=== PATIENT | female | born 1930 | race Caucasian/White ===

== ENCOUNTER 2016-08-14 21:01 | Observation (INO) | payer MEDICARE, OTHER ==
[~2016-08-14] VITALS: Ht 157.5 cm; Wt 55.0 kg
[2016-08-14 22:27] VITALS: BP 172/79; PULSE 65; RESP 20; TEMP 97.8; O2SAT 100
--- NOTE | 2016-08-14 22:27 | PD ---
HPI Chief Complaint: Psychiatric Symptoms Time Seen by Provider: 22:21 Travel History International Travel<30 days: No Contact w/Intl Traveler<30days: No History of Present Illness HPI Patient comes in under a [place] act by police after being found walking in traffic after walking away from her house. Per [place] act patient has a history of dementia. Patient states she had an argument with her sister and was just trying to get away. Patient's only concern she states she is supposed to go see her doctor tomorrow have blanche removed. Patient is uncertain as to why she blanche in her left hip. Patient denies any pain anywhere, fevers, shortness of breath, headache, chest pain, cough, or abdominal pain. PFSH Past Medical History Medical History: Unable to Obtain (poor historian) Social History Alcohol Use: No Tobacco Use: No Substance Use: No Allergies-Medications (Allergen,Severity, Reaction): Coded Allergies: No Known Allergies (Unverified , 08/15/16) Reported Meds & Prescriptions Reported Meds & Active Scripts Active Keflex (Cephalexin) 500 Mg Cap 500 Mg PO Q12H 7 Days Review of Systems ROS Limitations: Poor Historian Except as stated in HPI: all other systems reviewed are Neg Physical Exam Exam Limitations: Poor Historian Narrative GENERAL: Well-developed, well nourished, in no acute distress, and non-ill appearing. SKIN: Warm and dry. [place] noted left hip they are dry clean intact without signs of infection or drainage. HEAD: Atraumatic. Normocephalic. EYES: Pupils equal and round. EOMI. No scleral icterus. No injection or drainage. ENT: No nasal bleeding or discharge. Mucous membranes pink and moist. NECK: Trachea midline. Supple. No nuclear rigidity. CARDIOVASCULAR: Regular rate and rhythm. Grade 1/6 murmur appreciated. RESPIRATORY: No accessory muscle use. No respiratory distress. Clear to auscultation. Breath sounds equal bilaterally. MUSCULOSKELETAL: No obvious deformities. No clubbing. No cyanosis. No edema. Full range of motion. NEUROLOGICAL: Awake and alert. No obvious cranial nerve deficits. Motor grossly within normal limits. Normal speech. PSYCHIATRIC: Appropriate mood and affect; insight and judgment normal. Data Data Last Documented VS Vital Signs Date Time Temp Pulse Resp B/P Pulse Ox O2 Delivery O2 Flow Rate FiO2 08/14/16 22:27 97.8 65 20 172/79 100 Orders Complete Blood Count With Diff (08/14/16 22:14) Comprehensive Metabolic Panel (08/14/16 22:14) Urinalysis - C+S If Indicated (08/14/16 22:14) Psych Screen (08/14/16 22:14) Drug Screen, Random Urine (08/14/16 22:14) Alcohol (Ethanol) (08/14/16 22:14) Salicylates (Aspirin) (08/14/16 22:14) Tylenol (Acetaminophen) (08/14/16 22:14) Urine Culture (08/14/16 22:45) Iv Access Insert/Monitor (08/15/16 00:30) Sodium Chlorid 0.9% 500 Ml Inj (Ns 500 M (08/15/16 00:30) Ceftriaxone Inj (Rocephin Inj) (08/15/16 00:30) Labs Laboratory Tests Test 08/14/16 08/14/16 22:45 22:54 Urine Color YELLOW Urine Turbidity CLEAR Urine pH 6.0 Urine Specific [place] 1.007 Urine Protein NEG mg/dL Urine Glucose (UA) TRACE mg/dL Urine Ketones NEG mg/dL Urine Occult Blood NEG Urine Nitrite NEG Urine Bilirubin NEG Urine Urobilinogen LESS THAN 2.0 MG/DL Urine Leukocyte Esterase LARGE Urine RBC 7 /hpf Urine WBC 17 /hpf Urine Squamous Epithelial 3 /hpf Cells Urine Renal Epithelial Cells 5 /hpf Urine Bacteria RARE /hpf Urine Hyaline Casts 1 /lpf Urine Mucus FEW /lpf Microscopic Urinalysis Comment CULTURE INDICATED Urine Opiates Screen NEG Urine Barbiturates Screen NEG Urine Amphetamines Screen NEG Urine Benzodiazepines Screen NEG Urine Cocaine Screen NEG Urine Cannabinoids Screen NEG White Blood Count 10.4 TH/MM3 Red Blood Count 3.45 MIL/MM3 Hemoglobin 10.0 GM/DL Hematocrit 29.4 % Mean Corpuscular Volume 85.0 FL Mean Corpuscular Hemoglobin 28.9 PG Mean Corpuscular Hemoglobin 33.9 % Concent Red Cell Distribution Width 15.3 % Platelet Count 326 TH/MM3 Mean Platelet Volume 9.1 FL Neutrophils (%) (Auto) 82.9 % Lymphocytes (%) (Auto) 8.9 % Monocytes (%) (Auto) 6.9 % Eosinophils (%) (Auto) 1.0 % Basophils (%) (Auto) 0.3 % Neutrophils # (Auto) 8.6 TH/MM3 Lymphocytes # (Auto) 0.9 TH/MM3 Monocytes # (Auto) 0.7 TH/MM3 Eosinophils # (Auto) 0.1 TH/MM3 Basophils # (Auto) 0.0 TH/MM3 CBC Comment DIFF FINAL Differential Comment Salicylates Level LESS THAN 1.7 MG/DL Sodium Level 131 MEQ/L Potassium Level 4.1 MEQ/L Chloride Level 95 MEQ/L Carbon Dioxide Level 27.3 MEQ/L Anion Gap 9 MEQ/L Blood Urea Nitrogen 20 MG/DL Creatinine 1.57 MG/DL Estimat Glomerular Filtration 31 ML/MIN Rate Random Glucose 100 MG/DL Calcium Level 8.8 MG/DL Total Bilirubin 0.5 MG/DL Aspartate Amino Transf 28 U/L (AST/SGOT) Alanine Aminotransferase 24 U/L (ALT/SGPT) Alkaline Phosphatase 79 U/L Total Protein 6.6 GM/DL Albumin 3.3 GM/DL Acetaminophen Level LESS THAN 2.0 MCG/ML Ethyl Alcohol Level LESS THAN 3 MG/DL MDM Medical Decision Making Medical Screen Exam Complete: Yes Emergency Medical Condition: Yes Differential Diagnosis Homicidal, suicidal, electrolyte abnormality, UTI, dementia, other Narrative Course Patient was seen and examined. Labs were obtained and reviewed. Patient was given 500 cc normal saline for her hyponatremia and a dose of Rocephin for her UTI. Prescription for Keflex was written. Discussed patient with Dr. Sandhu, who is in agreement with plan of care. Patient medically cleared for further treatment and evaluation by psych. Final disposition per psych. Diagnosis Primary Impression: UTI (urinary tract infection) Qualified Code: N39.0 - Urinary tract infection without hematuria, site unspecified Additional Impression: Hyponatremia Patient Instructions: General Instructions, Hyponatremia (ED), Urinary Tract Infection in Women (ED) Additional Instructions: Follow-up with your primary care physician in 5-7 days for reevaluation of your urinary tract infection. Take all medication as prescribed. Return to the emergency department if symptoms get worse. Med/Other Pt SpecificInfo: Prescription(s) given Scripts Cephalexin (Keflex)500 Mg [id number] Mg PO Q12H 7 Days Ref 0 Prov:Cinthya Vaca MD 08/15/16 Condition: Stable Sumanth Friend Aug 14, 2016 22:27 Sumanth Friend Aug 14, 2016 22:27
[2016-08-14 23:15] LABS: AUTOMATED NEUTROPHIL # 8.6 TH/MM3 (1.8-7.7); BASOPHIL % 0.3 % (0.0-2.0); EOSINOPHIL # 0.1 TH/MM3 (0-0.4); HEMATOCRIT 29.4 % (35.0-46.0); HEMO FLAGS DIFF FINAL; LYMPH % 8.9 % (9.0-44.0); LYMPHOCYTE # 0.9 TH/MM3 (1.0-4.8); MEAN CORPUSCULAR HEMOGLOBIN 28.9 PG (27.0-34.0); MEAN CORPUSCULAR HGB CONC 33.9 % (32.0-36.0); MONO % 6.9 % (0.0-8.0); NEUT % 82.9 % (16.0-70.0); PLATELET COUNT 326 TH/MM3 (150-450); RED BLOOD COUNT 3.45 MIL/MM3 (4.00-5.30); RED CELL DISTRIBUTION WIDTH 15.3 % (11.6-17.2); WHITE BLOOD COUNT 10.4 TH/MM3 (4.0-11.0)
[2016-08-14 23:24] LABS: AMPHETAMINE, URINE NEG (NEG); BARBITURATES, URINE NEG (NEG); COCAINE, URINE NEG (NEG)
[2016-08-14 23:31] LABS: BACTERIA, URINE RARE /hpf; BLOOD, URINE NEG (NEG); COMMENT (UR) CULTURE INDICATED; CULTURE IF INDICATED CULTURE INDICATED; GLUCOSE,URINE TRACE mg/dL (NEG); HYALINE CAST, URINE 1 /lpf (RARE); KETONE, URINE NEG (NEG); MUCUS URINE FEW /lpf (OCC); NITRITE,URINE NEG (NEG); RENAL EPITHELIAL CELLS 5 /hpf; SQUAMOUS EPITHELIAL CELL URINE 3 /hpf (0-5); URINE COLOR YELLOW (YELLW/STRAW)
[2016-08-14 23:43] LABS: ACETAMINOPHEN LESS THAN 2.0 MCG/ML (10.0-30.0); ALKALINE PHOSPHATASE 79 U/L (45-117); ALT (GPT) 24 U/L (10-53); ANION GAP 9 MEQ/L (5-15); AST (GOT) 28 U/L (15-37); BICARBONATE 27.3 MEQ/L (21.0-32.0); BLOOD UREA NITROGEN 20 MG/DL (7-18); CHLORIDE 95 MEQ/L (98-107); GLOMERULAR FILTRATION RATE 31 ML/MIN (>89); POTASSIUM 4.1 MEQ/L (3.5-5.1); SODIUM (NA) 131 MEQ/L (136-145); TOTAL BILIRUBIN ADULT 0.5 MG/DL (0.2-1.0)
[2016-08-15] MEDS ORDERED: cefTRIAXone INJ 1,000 MG in SODIUM CHLORIDE 0.9% INJ 100 ML IV ONE (00:30)
[2016-08-15] MEDS ORDERED: SODIUM CHLORID 0.9% 500 ML INJ 500 ML IV ONE (00:30)
[2016-08-15] MEDS ORDERED: CEPH-460 PO (00:32)
[2016-08-15 05:00] VITALS: BP 154/71; PULSE 68; RESP 16; O2SAT 99
[2016-08-15 06:25] VITALS: BP 140/64; PULSE 49; RESP 18; TEMP 98.5; O2SAT 98
[2016-08-15 07:20] VITALS: BP 136/63; PULSE 59; RESP 16; O2SAT 98
--- NOTE | 2016-08-15 11:41 | PD.CONS ---
Provisional Diagnosis Admission Date [place]. Dementia with behavioral disturbances [place] II. Deferred [place] III. UTI, recent hip fracture [place] IV. Patient lives alone [place] V. 50 History of Present Illness Service Psychiatry Consult Requested By Primary Care Physician Unknown HPI The patient is a 86-year-old woman, domiciled alone in [place], , with psychiatric history of dementia, no previous psychiatric hospitalizations, who comes in under a [place] act by police after being found walking in traffic after walking away from her house. Per Montero act patient has a history of dementia. Patient states she had an argument with her sister and was just trying to get away from her when she was Montero acted. On the ER routine labs were done, patient was found to have a UTI, she was given 1 gram of ceftriaxone. On psychiatric evaluation patient is calm, cooperative, pleasant but confused and disoriented. Patient says that she lives with her , that she doesn't know what is she doing the hospital, she things that we are in 2015, she reports happy mood, denies depressive symptoms, denies anxiety, denies perceptual disturbances, she denies suicidal or homicidal ideation, she denies visual and auditory hallucinations. As per nurse patient has been calm, very easy to deal with, no agitation, no aggressive behavior observed at the moment. Collateral information from briseida Lopez, brother-in- law, , he informs that the patient had a hip surgery a couple weeks ago and since then her mentation has been progressively deteriorating. Patient has history of dementia, she functions at a very low level, she lives alone but she receives permanent help of her sisters. He says that today that we will be working very hard and finding placement for the patient. They understand that the patient cannot live alone and need professional help. He does not think that the patient needs psychiatric admission. As per [id number] the patient doesn't use alcohol or illicit drugs. Review of Systems Constitutional: DENIES: Diaphoretic episodes, Fatigue, Fever, Weight gain, Weight loss, Chills, Dizziness, Change in appetite, Night Sweats Endocrine: DENIES: Abnorml menstrual pattern, Heat/cold intolerance, Polydipsia , Polyuria, Polyphagia Eyes: DENIES: Blurred vision, Diplopia, Eye inflammation, Eye pain, Vision loss , Photosensitivity, Double Vision Ears, nose, mouth, throat: DENIES: Tinnitus, Hearing loss, Vertigo, Nasal discharge, Oral lesions, Throat pain, Hoarseness, Ear Pain, Running Nose, Epistaxis, Sinus Pain, Toothache, Odynophagia Respiratory: DENIES: Apneas, Cough, Snoring, Wheezing, Hemoptysis, Sputum production, Shortness of breath Cardiovascular: DENIES: Chest pain, Palpitations, Syncope, Dyspnea on Exertion , PND, Lower Extremity Edema, Orthopnea, Claudication Gastrointestinal: DENIES: Abdominal pain, Black stools, Bloody stools, Constipation, Diarrhea, Nausea, Vomiting, Difficulty Swallowing, Anorexia Musculoskeletal: COMPLAINS OF: Joint pain (patient reports hip pain) Integumentary: DENIES: Abnormal pigmentation, Pruritus, Rash, Nail changes, Breast masses, Breast skin changes, Nipple discharge Immunologic/allergic: DENIES: Eczema, Urticaria Neurologic: DENIES: Abnormal gait, Headache, Localized weakness, Paresthesias, Seizures, Speech Problems, Tremor, Poor Balance Past Family Social History Coded Allergies: No Known Allergies (Unverified , 08/15/16) Active Scripts Cephalexin (Keflex)500 Mg [id number] Mg PO Q12H 7 Days Ref 0 Prov:Cinthya Vaca MD 08/15/16 Family History Denies Social History Patient was born and raised in [place], she lives alone in [place], her sister help her in daily activities, she is , Patient's Strengths (min. 2) Family support Physical Exam On physical exam no agitation, no aggressive behavior, no EPS, no stiffness, no tremors observed Vital Signs Vital Signs Date Time Temp Pulse Resp B/P Pulse Ox O2 Delivery O2 Flow Rate FiO2 08/15/16 07:20 59 16 136/63 98 Room Air 08/15/16 06:25 98.5 Lab Results WBCs 10.4, RBCs 3.4, HCT 39.4, UTI positive, NA 134, K4.1, AST 28, AST 29, creatinine 1.7, BUN 20, toxicology is negative, blood alcohol level is less than 3. Mental Status Examination Appearance Elderly lady, age appearing, good hygiene, [facility], calm, superficially cooperative, pleasant Speech: Hesitant, Slow Orientation: Person Memory: Impaired (describe) Thought Process: Loose Association Thought Content: Bizarre thinking Hallucination Type: None Attention and Concentration: Abnormal Suicidal Ideation: No Previous Suicide Attempts: No Homicidal Ideation: No Previous Homicide Attempts: No Insight: Poor Judgement: WNL Affect: Good Affect if Inappropriate: Blunt Mood: Appropriate Motor Activity: Normal gait Assessment & Plan Problem List: (1) Dementia with behavioral disturbance Assessment & Plan: On psychiatric evaluation today the patient does not present any evidence of depressive symptoms, anxiety, batsheva or psychosis. The patient denies suicidal or homicidal ideation, she denies visual and auditory hallucinations.. Patient is pleasantly confused, disoriented in time and place, repetitive, illogical incoherent which is consistent with underlying dementia. At this moment the patient does not present any agitation, any aggressive behavior. Most probably recent episode of agitation that led to Montero act was secondary to superimposed delirium secondary to UTI. Patient does not meet criteria for psychiatric admission at this moment. No psychotropics recommended at this time. field crop i farmworker intervention to coordinate with family member a safe discharge planning. ICD Code: F03.91 Assessment & Plan Estimated LOS: Chang Wells MD Aug 15, 2016 11:41
[2016-08-15 15:17] VITALS: BP 141/68; O2SAT 96
[2016-08-15] MEDS ORDERED: BISACODYL 10 MG SUPP PR PRN (16:45)
[2016-08-15] MEDS ORDERED: NALOXONE HCL 0.4 MG/ML AMP IV PRN (16:45)
[2016-08-15] MEDS ORDERED: ONDANSETRON HCL 4 MG/2 ML VIAL IVP PRN (16:45)
[2016-08-15] MEDS ORDERED: METOCLOPRAMIDE HCL 10 MG/2 ML VIAL IV PUSH PRN (16:45)
[2016-08-15] MEDS ORDERED: SODIUM CHLORIDE 0.9% FLUSH 10 ML FLUSH IV FLUSH PRN (16:45)
--- NOTE | 2016-08-15 17:05 | HHI.HP ---
[facility] Unknown Admission Diagnosis dementia, failure to thrive, placement issue Diagnoses: Chief Complaint: Dementia Travel History International Travel<30 Days: No Contact w/Intl Traveler <30 Da: No Traveled to Known Affected Are: No History of Present Illness 86-year-old female with a past medical history of dementia who was initially brought to the ED under [place] act for wandering in traffic. The patient is pleasantly demented and is a poor historian. She does know she is in the hospital, but does not recall her year; she does know that it is Sunday, but does not know the month or year. History is also obtained from EMR and ED communication. The patient states that she lives with her sisters and brother- in-law. Apparently she was recently in a facility, but is now currently residing at home with family. The patient's family is trying to get her into an assisted living facility, hopefully tomorrow. The patient has no acute medical complaints at this time. She denies any dysuria. 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 She is not sure what medication she is on home, but as please take something as needed when her heart is racing. Review of Systems Except as stated in HPI: all other systems reviewed are Neg Past Family Social History Past Medical History Dementia History of palpitations Past Surgical History Patient denies any surgeries, however was apparently at a rehabilitation facility recently after a left hip procedure Reported Medications Patient reports medication and take as needed for her recent Allergies: Coded Allergies: No Known Allergies (Unverified , 08/15/16) Active Ordered Medications Current Medications Medications (Trade) Dose Ordered Sig/Cb Route Start Time Stop Time Status Last Admin (NS 1000 ml Inj) 1,000 ml @ 83 mls/hr Q12H3M IV 08/15/16 16:34 UNV (NS Flush) 2 ml UNSCH PRN IV FLUSH 08/15/16 16:45 UNV (NS Flush) 2 ml BID IV FLUSH 08/15/16 21:00 UNV (Tylenol) 650 mg Q4H PRN PO 08/15/16 16:45 UNV (Zofran Inj) 4 mg Q6H PRN IVP 08/15/16 16:45 UNV (Reglan Inj) 5 mg Q6H PRN IV PUSH 08/15/16 16:45 UNV (Dulcolax Supp) 10 mg DAILY PRN MT 08/15/16 16:45 UNV (Colace) 100 mg Q12H PO 08/15/16 16:45 UNV (Lovenox Inj) 40 mg Q24H SQ 08/15/16 16:45 UNV (Narcan Inj) 0.4 mg UNSCH PRN IV 08/15/16 16:45 UNV Family History Unable to obtain secondary to patient's mental status Social History Reports she lives with her sisters and brother along Denies any alcohol or tobacco use Physical Exam Vital Signs Vital Signs Date Time Temp Pulse Resp B/P Pulse Ox O2 Delivery O2 Flow Rate FiO2 08/15/16 15:17 141/68 96 Room Air 08/15/16 07:20 59 16 136/63 98 Room Air 08/15/16 06:26 18 08/15/16 06:25 98.5 49 18 140/64 98 Room Air 08/15/16 05:00 68 16 154/71 99 Room Air 08/14/16 22:27 97.8 65 20 172/79 100 Physical Exam GENERAL: Well-developed well-nourished. In no acute distress. Oriented to place, soft, and day have a week. Disoriented to birthday, month, year. SKIN: Warm and dry. [place] in place in left hip, clean. HEENT: Normocephalic. Pupils equal and round. Mucous membranes pink and moist. CARDIOVASCULAR: Regular rate and rhythm. No murmur appreciated. RESPIRATORY: No accessory muscle use. Clear to auscultation. Breath sounds equal bilaterally. GASTROINTESTINAL: Abdomen soft, non-tender, nondistended. Bowel sounds x4. MUSCULOSKELETAL: No obvious deformities. No clubbing or cyanosis. No edema. NEUROLOGICAL: Awake and alert. No focal neurological deficits. Moves upper and lower extremities spontaneously. Normal speech. PSYCHIATRIC: Pleasantly confused mood and affect; insight and judgment limited. Laboratory Laboratory Tests Test 08/14/16 08/14/16 22:45 22:54 Urine Color YELLOW Urine Turbidity CLEAR Urine pH 6.0 Urine Specific [place] 1.007 Urine Protein NEG Urine Glucose (UA) TRACE Urine Ketones NEG Urine Occult Blood NEG Urine Nitrite NEG Urine Bilirubin NEG Urine Urobilinogen LESS THAN 2.0 Urine Leukocyte Esterase LARGE Urine RBC 7 Urine WBC 17 Urine Squamous Epithelial 3 Cells Urine Renal Epithelial Cells 5 Urine Bacteria RARE Urine Hyaline Casts 1 Urine Mucus FEW Microscopic Urinalysis Comment CULTURE INDICATED Urine Opiates Screen NEG Urine Barbiturates Screen NEG Urine Amphetamines Screen NEG Urine Benzodiazepines Screen NEG Urine Cocaine Screen NEG Urine Cannabinoids Screen NEG White Blood Count 10.4 Red Blood Count 3.45 Hemoglobin 10.0 Hematocrit 29.4 Mean Corpuscular Volume 85.0 Mean Corpuscular Hemoglobin 28.9 Mean Corpuscular Hemoglobin 33.9 Concent Red Cell Distribution Width 15.3 Platelet Count 326 Mean Platelet Volume 9.1 Neutrophils (%) (Auto) 82.9 Lymphocytes (%) (Auto) 8.9 Monocytes (%) (Auto) 6.9 Eosinophils (%) (Auto) 1.0 Basophils (%) (Auto) 0.3 Neutrophils # (Auto) 8.6 Lymphocytes # (Auto) 0.9 Monocytes # (Auto) 0.7 Eosinophils # (Auto) 0.1 Basophils # (Auto) 0.0 CBC Comment DIFF FINAL Differential Comment Salicylates Level LESS THAN 1.7 Sodium Level 131 Potassium Level 4.1 Chloride Level 95 Carbon Dioxide Level 27.3 Anion Gap 9 Blood Urea Nitrogen 20 Creatinine 1.57 Estimat Glomerular Filtration 31 Rate Random Glucose 100 Calcium Level 8.8 Total Bilirubin 0.5 Aspartate Amino Transf 28 (AST/SGOT) Alanine Aminotransferase 24 (ALT/SGPT) Alkaline Phosphatase 79 Total Protein 6.6 Albumin 3.3 Acetaminophen Level LESS THAN 2.0 Ethyl Alcohol Level LESS THAN 3 Date/Time Procedure Status Source Growth 08/14/16 22:45 Urine Culture - Preliminary Resulted Urine Clean Catch NO GROWTH IN 24 HOURS. Result Diagram: 08/14/16225308/14/162253 Assessment and Plan Assessment and Plan 86-year-old female with a past medical history of dementia who was initially brought to the ED under Montero act for wandering in traffic and admitted pending possible INTERMEDIATE placement Dementia with failure to thrive: Pleasantly confused. Toxicology negative. Continue sitter for now. PT/OT. Case management consulted for discharge disposition. Reconcile and resume home medications. UTI: UA with evidence of UTI. Urine cultures no growth to date. Empiric IV Rocephin pending final urine culture. DEONTE vs CKD: 1.57, and no obvious labs for comparison. Give IVF. Follow -up BMP. Normocytic anemia: Chronic? No previous labs for comparison. Follow-up CBC in the a.m. DVT prophylaxis: Lovenox Discussed Condition With Patient was at her bedside, ED RN, Dr. Guevara, Dr. Blackwell Attending Statement Patient seen in the room in the presence of Nurse and PA agree with management, discussed with charge nurse. Jhoan Orlando Aug 15, 2016 17:05 Marvin Barnett MD Aug 15, 2016 18:17
[2016-08-15] MEDS ORDERED: NAME10TA PO (17:29)
[2016-08-15] MEDS ORDERED: CIPR500T2 PO (17:29)
[2016-08-15] MEDS ORDERED: CITRSOL3 (17:29)
[2016-08-15] MEDS ORDERED: [UNRECOGNIZED DRUG - CODE] PO (17:29)
[2016-08-15] MEDS ORDERED: GLIM1TAB PO (17:29)
[2016-08-15] MEDS ORDERED: ENEMENE5 (17:29)
[2016-08-15] MEDS ORDERED: DULC100C PO (17:29)
[2016-08-15] MEDS ORDERED: HUMU70IN (17:29)
[2016-08-15] MEDS ORDERED: ATEN25TA PO (17:29)
[2016-08-15] MEDS ORDERED: ENOX40IN SQ (17:29)
[2016-08-15] MEDS ORDERED: NAME5TAB2 PO ×2 (17:29)
[2016-08-15] MEDS ORDERED: LISI-515 PO (17:29)
[2016-08-15] MEDS: ENOXAPARIN SODIUM 40 MG/0.4 ML SYRINGE SQ SCH (18:51)
[2016-08-15] MEDS: SODIUM CHLOR 0.9% 1000 ML INJ 1,000 ML IV SCH (18:51)
[2016-08-15 20:31] VITALS: BP_SYST 174; BP_SYST 176; BP_DIAS 68; BP_DIAS 77; PULSE 67; RESP 20; TEMP 98.6; O2SAT 97
[2016-08-15] MEDS: SODIUM CHLORIDE 0.9% FLUSH 10 ML FLUSH IV FLUSH SCH (20:47)
[2016-08-15] MEDS: DOCUSATE SODIUM 100 MG CAP PO SCH (20:48)
[2016-08-16] VITALS (7 sets, daily range): BP systolic 138–187; BP diastolic 64–82; PULSE 60–74; RESP 16–20; TEMP 97.6–98.6; O2SAT 96–99
[2016-08-16] MEDS: cefTRIAXone INJ 1,000 MG in SODIUM CHLORIDE 0.9% INJ 100 ML IV SCH ×2
[2016-08-16] MEDS: SODIUM CHLOR 0.9% 1000 ML INJ 1,000 ML IV SCH ×2 (04:37→16:40)
[2016-08-16] MEDS: SODIUM CHLORIDE 0.9% FLUSH 10 ML FLUSH IV FLUSH SCH ×2 (09:00→20:48)
[2016-08-16] MEDS: DOCUSATE SODIUM 100 MG CAP PO SCH ×2 (09:18→20:47)
--- NOTE | 2016-08-16 11:40 | HHI.PR ---
Subjective Remarks 86-year-old female with a past medical history of dementia who was initially brought to the ED under Montero act for wandering in traffic. The patient is pleasantly demented and is a poor historian. She does know she is in the hospital, but does not recall her year; she does know that it is Sunday, but does not know the month or year. History is also obtained from EMR and ED communication. The patient states that she lives with her sisters and [id number]. Apparently she was recently in a facility, but is now currently residing at home with family. The patient's family is trying to get her into an assisted living facility, hopefully tomorrow. The patient has no acute medical complaints at this time. She denies any dysuria. 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 She is not sure what medication she is on home, but as please take something as needed when her heart is racing. patient stable seen in the room in the presence of sitter and discussed with nurse Miss Michelle arciniega, awaiting for placement no nausea, vomit or diarrhea. Objective Vital Signs Date Time Temp Pulse Resp B/P Pulse Ox O2 Delivery O2 Flow Rate FiO2 08/16/16 07:33 98.1 60 16 187/79 96 08/16/16 03:41 97.6 70 20 97 08/16/16 00:20 97.6 62 20 138/81 99 08/15/16 20:31 98.6 67 20 174/77 97 08/15/16 15:17 141/68 96 Room Air I/O 08/15/16 08/15/16 08/15/16 08/16/16 08/16/16 08/16/16 07:00 15:00 23:00 07:00 15:00 23:00 Intake Total 221 ml 240 ml Output Total 200 ml Balance 221 ml 40 ml Intake Oral 221 ml 240 ml Output Urine Total 200 ml Result Diagram: 08/14/16 22508/14/162253 Imaging No imaging studies Procedures No procedures performed. Other Results Laboratory Tests Test 08/14/16 08/14/16 22:45 22:54 Urine Color YELLOW Urine Turbidity CLEAR Urine pH 6.0 Urine Specific [place] 1.007 Urine Protein NEG mg/dL Urine Glucose (UA) TRACE mg/dL Urine Ketones NEG mg/dL Urine Occult Blood NEG Urine Nitrite NEG Urine Bilirubin NEG Urine Urobilinogen LESS THAN 2.0 MG/DL Urine Leukocyte Esterase LARGE Urine RBC 7 /hpf Urine WBC 17 /hpf Urine Squamous Epithelial 3 /hpf Cells Urine Renal Epithelial Cells 5 /hpf Urine Bacteria RARE /hpf Urine Hyaline Casts 1 /lpf Urine Mucus FEW /lpf Microscopic Urinalysis Comment CULTURE INDICATED Urine Opiates Screen NEG Urine Barbiturates Screen NEG Urine Amphetamines Screen NEG Urine Benzodiazepines Screen NEG Urine Cocaine Screen NEG Urine Cannabinoids Screen NEG White Blood Count 10.4 TH/MM3 Red Blood Count 3.45 MIL/MM3 Hemoglobin 10.0 GM/DL Hematocrit 29.4 % Mean Corpuscular Volume 85.0 FL Mean Corpuscular Hemoglobin 28.9 PG Mean Corpuscular Hemoglobin 33.9 % Concent Red Cell Distribution Width 15.3 % Platelet Count 326 TH/MM3 Mean Platelet Volume 9.1 FL Neutrophils (%) (Auto) 82.9 % Lymphocytes (%) (Auto) 8.9 % Monocytes (%) (Auto) 6.9 % Eosinophils (%) (Auto) 1.0 % Basophils (%) (Auto) 0.3 % Neutrophils # (Auto) 8.6 TH/MM3 Lymphocytes # (Auto) 0.9 TH/MM3 Monocytes # (Auto) 0.7 TH/MM3 Eosinophils # (Auto) 0.1 TH/MM3 Basophils # (Auto) 0.0 TH/MM3 CBC Comment DIFF FINAL Differential Comment Salicylates Level LESS THAN 1.7 MG/DL Sodium Level 131 MEQ/L Potassium Level 4.1 MEQ/L Chloride Level 95 MEQ/L Carbon Dioxide Level 27.3 MEQ/L Anion Gap 9 MEQ/L Blood Urea Nitrogen 20 MG/DL Creatinine 1.57 MG/DL Estimat Glomerular Filtration 31 ML/MIN Rate Random Glucose 100 MG/DL Calcium Level 8.8 MG/DL Total Bilirubin 0.5 MG/DL Aspartate Amino Transf 28 U/L (AST/SGOT) Alanine Aminotransferase 24 U/L (ALT/SGPT) Alkaline Phosphatase 79 U/L Total Protein 6.6 GM/DL Albumin 3.3 GM/DL Acetaminophen Level LESS THAN 2.0 MCG/ML Ethyl Alcohol Level LESS THAN 3 MG/DL Objective Remarks GENERAL: Well-developed well-nourished. In no acute distress. Oriented to place, soft, and day have a week. Disoriented to birthday, month, year. SKIN: Warm and dry. Saline in place in left hip, clean. HEENT: Normocephalic. Pupils equal and round. Mucous membranes pink and moist. CARDIOVASCULAR: Regular rate and rhythm. No murmur appreciated. RESPIRATORY: No accessory muscle use. Clear to auscultation. Breath sounds equal bilaterally. GASTROINTESTINAL: Abdomen soft, non-tender, nondistended. Bowel sounds x4. MUSCULOSKELETAL: No obvious deformities. No clubbing or cyanosis. No edema. NEUROLOGICAL: Awake and alert. No focal neurological deficits. Moves upper and lower extremities spontaneously. Normal speech. PSYCHIATRIC: Pleasantly confused mood and affect; insight and judgment limited. Medications and IVs Current Medications Medications (Trade) Dose Ordered Sig/Cb Route Start Time Stop Time Status Last Admin (NS 1000 ml Inj) 1,000 ml @ 83 mls/hr Q12H3M IV 08/15/16 16:34 08/15/16 18:51 (NS Flush) 2 ml UNSCH PRN IV FLUSH 08/15/16 16:45 (NS Flush) 2 ml BID IV FLUSH 08/15/16 21:00 08/15/16 20:47 (Tylenol) 650 mg Q4H PRN PO 08/15/16 16:45 (Zofran Inj) 4 mg Q6H PRN IVP 08/15/16 16:45 (Reglan Inj) 5 mg Q6H PRN IV PUSH 08/15/16 16:45 (Dulcolax Supp) 10 mg DAILY PRN SC 08/15/16 16:45 (Colace) 100 mg Q12H PO 08/15/16 21:00 08/16/16 09:18 (Lovenox Inj) 40 mg Q24H SQ 08/15/16 18:00 08/15/16 18:51 Naloxone HCl 0.4 mg 0.4 mg UNSCH PRN IV 08/15/16 16:45 (Rocephin Inj/NS Inj) 100 ml @ 200 mls/hr Q24H IV 08/16/16 00:00 A/P Assessment and Plan 86-year-old female with a past medical history of dementia who was initially brought to the ED under Montero act for wandering in traffic and admitted pending possible [facility] placement Dementia with failure to thrive: Pleasantly confused. Toxicology negative. Continue sitter for now. PT/OT. Case management consulted for discharge disposition. Reconcile and resume home medications. status post evaluation by Psychiatry specialist, no present evidence of depressive symptoms, anxiety, batsheva or psychosis, denies suicidal or homicidal ideation, she denies visual and auditory hallucinations. as superimposed delirium secondary to UTI suspected by Psychiatry specialist No psychotropics recommended at this time. hired worker intervention to coordinate with family member a safe discharge planning. UTI: UA with evidence of UTI. Urine cultures no growth to date. Empiric IV Rocephin pending final urine culture. DEONTE vs CKD: 1.57, and no obvious labs for comparison. Give IVF. Follow -up BMP. Normocytic anemia: Chronic? No previous labs for comparison. Follow-up CBC in the a.m. DVT prophylaxis: Lovenox Discussed Condition With Patient seen discussed with her, with nurse Miss Martinez and with sitter. Discharge Planning Awaiting for discharge Planning. Marvin Barnett MD Aug 16, 2016 11:40
[2016-08-16 14:52] LABS: AUTOMATED NEUTROPHIL # 4.7 TH/MM3 (1.8-7.7); BASOPHIL # 0.1 TH/MM3 (0-0.2); EOSINOPHIL % 0.6 % (0.0-4.0); HEMATOCRIT 28.3 % (35.0-46.0); HEMO FLAGS DIFF FINAL; LYMPH % 12.4 % (9.0-44.0); LYMPHOCYTE # 0.8 TH/MM3 (1.0-4.8); MEAN CELL VOLUME 85.6 FL (80.0-100.0); MEAN CORPUSCULAR HEMOGLOBIN 28.2 PG (27.0-34.0); MEAN CORPUSCULAR HGB CONC 32.9 % (32.0-36.0); MONO % 8.4 % (0.0-8.0); NEUT % 77.6 % (16.0-70.0); PLATELET COUNT 282 TH/MM3 (150-450); RED BLOOD COUNT 3.31 MIL/MM3 (4.00-5.30); RED CELL DISTRIBUTION WIDTH 15.4 % (11.6-17.2); WHITE BLOOD COUNT 6.1 TH/MM3 (4.0-11.0)
[2016-08-16 15:16] LABS: BICARBONATE 28.4 MEQ/L (21.0-32.0); POTASSIUM 4.1 MEQ/L (3.5-5.1)
[2016-08-16] MEDS: ENOXAPARIN SODIUM 40 MG/0.4 ML SYRINGE SQ SCH (18:28)
[2016-08-17] MEDS: cefTRIAXone INJ 1,000 MG in SODIUM CHLORIDE 0.9% INJ 100 ML IV SCH ×2
[2016-08-17 04:01] VITALS: BP 160/72; PULSE 85; RESP 20; TEMP 97.6; O2SAT 97
[2016-08-17] MEDS: SODIUM CHLOR 0.9% 1000 ML INJ 1,000 ML IV SCH ×2 (04:43→13:36)
[2016-08-17] MEDS: DOCUSATE SODIUM 100 MG CAP PO SCH ×2 (08:46→21:17)
[2016-08-17] MEDS: SODIUM CHLORIDE 0.9% FLUSH 10 ML FLUSH IV FLUSH SCH ×2 (08:46→21:00)
[2016-08-17] MEDS: ACETAMINOPHEN 325 MG TAB PO PRN (08:47)
--- NOTE | 2016-08-17 10:09 | HHI.PR ---
Subjective Remarks 86-year-old female with a past medical history of dementia who was initially brought to the ED under Montero act for wandering in traffic. The patient is pleasantly demented and is a poor historian. She does know she is in the hospital, but does not recall her year; she does know that it is Sunday, but does not know the month or year. History is also obtained from EMR and ED communication. The patient states that she lives with her sisters and [id number]. Apparently she was recently in a facility, but is now currently residing at home with family. The patient's family is trying to get her into an assisted living facility, hopefully tomorrow. The patient has no acute medical complaints at this time. She denies any dysuria. 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 She is not sure what medication she is on home, but as please take something as needed when her heart is racing. patient stable seen in the room in the presence of sitter and discussed with nurse Miss Michelle arciniega, awaiting for placement no nausea, vomit or diarrhea. 08/17 Stable seen in the room in the presence of sitter and discussed with nurse , non authorized the patient to be without IV line in place due to that the patient is hospitalized and needs a saline lock in place for Code purposes. awaiting for placement Objective Vital Signs Date Time Temp Pulse Resp B/P Pulse Ox O2 Delivery O2 Flow Rate FiO2 08/17/16 09:47 18 08/17/16 04:01 97.6 85 20 160/72 97 08/16/16 23:28 98.6 61 20 149/65 96 08/16/16 19:08 97.6 73 20 146/64 96 08/16/16 15:45 97.8 74 16 177/82 96 08/16/16 11:38 98.3 66 18 179/73 97 I/O 08/16/16 08/16/16 08/16/16 08/17/16 08/17/16 08/17/16 07:00 15:00 23:00 07:00 15:00 23:00 Intake Total 240 ml 240 ml Output Total 200 ml 950 ml Balance 40 ml -710 ml Intake Oral 240 ml 240 ml Output Urine Total 200 ml 950 ml # Voids 1 # Bowel Movements 1 Result Diagram: 08/16/16 1435 08/16/16 1435 Imaging No Imaging studies Procedures No procedures performed. Other Results Laboratory Tests Test 08/14/16 08/14/16 08/16/16 22:45 22:54 14:35 Urine Color YELLOW Urine Turbidity CLEAR Urine pH 6.0 Urine Specific [place] 1.007 Urine Protein NEG mg/dL Urine Glucose (UA) TRACE mg/dL Urine Ketones NEG mg/dL Urine Occult Blood NEG Urine Nitrite NEG Urine Bilirubin NEG Urine Urobilinogen LESS THAN 2.0 MG/DL Urine Leukocyte Esterase LARGE Urine RBC 7 /hpf Urine WBC 17 /hpf Urine Squamous Epithelial 3 /hpf Cells Urine Renal Epithelial Cells 5 /hpf Urine Bacteria RARE /hpf Urine Hyaline Casts 1 /lpf Urine Mucus FEW /lpf Microscopic Urinalysis Comment CULTURE INDICATED Urine Opiates Screen NEG Urine Barbiturates Screen NEG Urine Amphetamines Screen NEG Urine Benzodiazepines Screen NEG Urine Cocaine Screen NEG Urine Cannabinoids Screen NEG Salicylates Level LESS THAN 1.7 MG/DL Total Bilirubin 0.5 MG/DL Aspartate Amino Transf 28 U/L (AST/SGOT) Alanine Aminotransferase 24 U/L (ALT/SGPT) Alkaline Phosphatase 79 U/L Total Protein 6.6 GM/DL Albumin 3.3 GM/DL Acetaminophen Level LESS THAN 2.0 MCG/ML Ethyl Alcohol Level LESS THAN 3 MG/DL White Blood Count 6.1 TH/MM3 Red Blood Count 3.31 MIL/MM3 Hemoglobin 9.3 GM/DL Hematocrit 28.3 % Mean Corpuscular Volume 85.6 FL Mean Corpuscular Hemoglobin 28.2 PG Mean Corpuscular Hemoglobin 32.9 % Concent Red Cell Distribution Width 15.4 % Platelet Count 282 TH/MM3 Mean Platelet Volume 9.2 FL Neutrophils (%) (Auto) 77.6 % Lymphocytes (%) (Auto) 12.4 % Monocytes (%) (Auto) 8.4 % Eosinophils (%) (Auto) 0.6 % Basophils (%) (Auto) 1.0 % Neutrophils # (Auto) 4.7 TH/MM3 Lymphocytes # (Auto) 0.8 TH/MM3 Monocytes # (Auto) 0.5 TH/MM3 Eosinophils # (Auto) 0.0 TH/MM3 Basophils # (Auto) 0.1 TH/MM3 CBC Comment DIFF FINAL Differential Comment Sodium Level 135 MEQ/L Potassium Level 4.1 MEQ/L Chloride Level 103 MEQ/L Carbon Dioxide Level 28.4 MEQ/L Anion Gap 4 MEQ/L Blood Urea Nitrogen 16 MG/DL Creatinine 1.12 MG/DL Estimat Glomerular Filtration 46 ML/MIN Rate Random Glucose 134 MG/DL Calcium Level 9.0 MG/DL Objective Remarks GENERAL: Well-developed well-nourished. In no acute distress. Oriented to place, soft, and day have a week. Disoriented to birthday, month, year. SKIN: Warm and dry. [place] in place in left hip, clean. HEENT: Normocephalic. Pupils equal and round. Mucous membranes pink and moist. CARDIOVASCULAR: Regular rate and rhythm. No murmur appreciated. RESPIRATORY: No accessory muscle use. Clear to auscultation. Breath sounds equal bilaterally. GASTROINTESTINAL: Abdomen soft, non-tender, nondistended. Bowel sounds x4. MUSCULOSKELETAL: No obvious deformities. No clubbing or cyanosis. No edema. NEUROLOGICAL: Awake and alert. No focal neurological deficits. Moves upper and lower extremities spontaneously. Normal speech. PSYCHIATRIC: Pleasantly confused mood and affect; insight and judgment limited. Medications and IVs Current Medications Medications (Trade) Dose Ordered Sig/Cb Route Start Time Stop Time Status Last Admin (NS 1000 ml Inj) 1,000 ml @ 83 mls/hr Q12H3M IV 08/15/16 16:34 08/15/16 18:51 (NS Flush) 2 ml UNSCH PRN IV FLUSH 08/15/16 16:45 (NS Flush) 2 ml BID IV FLUSH 08/15/16 21:00 08/15/16 20:47 (Tylenol) 650 mg Q4H PRN PO 08/15/16 16:45 08/17/16 08:47 (Zofran Inj) 4 mg Q6H PRN IVP 08/15/16 16:45 (Reglan Inj) 5 mg Q6H PRN IV PUSH 08/15/16 16:45 (Dulcolax Supp) 10 mg DAILY PRN MA 08/15/16 16:45 (Colace) 100 mg Q12H PO 08/15/16 21:00 08/17/16 08:46 (Lovenox Inj) 40 mg Q24H SQ 08/15/16 18:00 08/16/16 18:28 Naloxone HCl 0.4 mg 0.4 mg UNSCH PRN IV 08/15/16 16:45 (Rocephin Inj/NS Inj) 100 ml @ 200 mls/hr Q24H IV 08/16/16 00:00 A/P Assessment and Plan 86-year-old female with a past medical history of dementia who was initially brought to the ED under Montero act for wandering in traffic and admitted pending possible [facility] placement Dementia with failure to thrive: at this time stable oriented in time, place and person, Toxicology negative, Case management is working on discharge status post evaluation by Psychiatry specialist, no present evidence of depressive symptoms, anxiety, batsheva or psychosis, denies suicidal or homicidal ideation, she denies visual and auditory hallucinations.as superimposed delirium secondary to UTI suspected by Psychiatry specialist No psychotropics recommended at this time. hydroponics worker intervention to coordinate with family member a safe discharge planning. UTI: UA with evidence of UTI. Urine cultures no growth to date. Empiric IV Rocephin, Urine culture negative. DEONTE Improving. Normocytic anemia: Chronic? No previous labs for comparison. DVT prophylaxis: Lovenox Discussed Condition With Patient nurse and sitter in the room. Discharge Planning Awaiting for discharge Planning. Marvin Barnett MD Aug 17, 2016 10:09
[2016-08-17 11:50] VITALS: BP 161/70; PULSE 98; RESP 18; TEMP 97.7; O2SAT 99
[2016-08-17 15:20] VITALS: BP 174/80; PULSE 56; RESP 18; TEMP 98.2; O2SAT 96
[2016-08-17] MEDS: ENOXAPARIN SODIUM 40 MG/0.4 ML SYRINGE SQ SCH (17:11)
[2016-08-18] MEDS: cefTRIAXone INJ 1,000 MG in SODIUM CHLORIDE 0.9% INJ 100 ML IV SCH ×2
[2016-08-18 00:22] VITALS: BP 165/72; PULSE 86; RESP 20; TEMP 97.3; O2SAT 96
[2016-08-18 04:31] VITALS: BP 195/87; PULSE 96; RESP 20; TEMP 98.8; O2SAT 99
[2016-08-18] MEDS: SODIUM CHLOR 0.9% 1000 ML INJ 1,000 ML IV SCH (04:49)
[2016-08-18] MEDS ORDERED: LORazepam 0.5 MG TAB PO ONE (06:30)
[2016-08-18 07:19] VITALS: BP 115/56; PULSE 90; RESP 18; TEMP 98; O2SAT 97
--- NOTE | 2016-08-18 07:54 | HHI.PR ---
Subjective Remarks 86-year-old female with a past medical history of dementia who was initially brought to the ED under Montero act for wandering in traffic. The patient is pleasantly demented and is a poor historian. She does know she is in the hospital, but does not recall her year; she does know that it is Sunday, but does not know the month or year. History is also obtained from EMR and ED communication. The patient states that she lives with her sisters and [id number]. Apparently she was recently in a facility, but is now currently residing at home with family. The patient's family is trying to get her into an assisted living facility, hopefully tomorrow. The patient has no acute medical complaints at this time. She denies any dysuria. Apparently she recently had a hip procedure and does have some nubia in her left hip, but cannot state when/why they were placed. She is not sure what medication she is on home, but as please take something as needed when her heart is racing. patient stable seen in the room in the presence of sitter and discussed with nurse Miss Michelle arciniega, awaiting for placement no nausea, vomit or diarrhea. 08/17 Stable seen in the room in the presence of sitter and discussed with nurse , non authorized the patient to be without IV line in place due to that the patient is hospitalized and needs a saline lock in place for Code purposes. awaiting for placement 08/18 Seen in her room in the presence of nurse and sitter, discussed with Customer Development Manager no new complaint by patient, but as per nurse refused everything. No nausea, vomit or diarrhea. Objective Vital Signs Date Time Temp Pulse Resp B/P Pulse Ox O2 Delivery O2 Flow Rate FiO2 08/18/16 07:19 98.0 90 18 115/56 97 08/18/16 04:31 98.8 96 20 195/87 99 08/18/16 00:22 97.3 86 20 165/72 96 08/17/16 15:20 98.2 56 18 174/80 96 08/17/16 11:50 97.7 98 18 161/70 99 08/17/16 09:47 18 I/O 08/17/16 08/17/16 08/17/16 08/18/16 08/18/16 08/18/16 06:59 14:59 22:59 06:59 14:59 22:59 Intake Total 120 ml 120 ml Balance 120 ml 120 ml Intake Oral 120 ml 120 ml # Voids 1 4 1 Result Diagram: 08/16/16 1435 08/16/16 1435 Imaging No Imaging studies Procedures No procedures performed. Other Results Laboratory Tests Test 08/14/16 08/14/16 08/16/16 22:45 22:54 14:35 Urine Color YELLOW Urine Turbidity CLEAR Urine pH 6.0 Urine Specific [place] 1.007 Urine Protein NEG mg/dL Urine Glucose (UA) TRACE mg/dL Urine Ketones NEG mg/dL Urine Occult Blood NEG Urine Nitrite NEG Urine Bilirubin NEG Urine Urobilinogen LESS THAN 2.0 MG/DL Urine Leukocyte Esterase LARGE Urine RBC 7 /hpf Urine WBC 17 /hpf Urine Squamous Epithelial 3 /hpf Cells Urine Renal Epithelial Cells 5 /hpf Urine Bacteria RARE /hpf Urine Hyaline Casts 1 /lpf Urine Mucus FEW /lpf Microscopic Urinalysis Comment CULTURE INDICATED Urine Opiates Screen NEG Urine Barbiturates Screen NEG Urine Amphetamines Screen NEG Urine Benzodiazepines Screen NEG Urine Cocaine Screen NEG Urine Cannabinoids Screen NEG Salicylates Level LESS THAN 1.7 MG/DL Total Bilirubin 0.5 MG/DL Aspartate Amino Transf 28 U/L (AST/SGOT) Alanine Aminotransferase 24 U/L (ALT/SGPT) Alkaline Phosphatase 79 U/L Total Protein 6.6 GM/DL Albumin 3.3 GM/DL Acetaminophen Level LESS THAN 2.0 MCG/ML Ethyl Alcohol Level LESS THAN 3 MG/DL White Blood Count 6.1 TH/MM3 Red Blood Count 3.31 MIL/MM3 Hemoglobin 9.3 GM/DL Hematocrit 28.3 % Mean Corpuscular Volume 85.6 FL Mean Corpuscular Hemoglobin 28.2 PG Mean Corpuscular Hemoglobin 32.9 % Concent Red Cell Distribution Width 15.4 % Platelet Count 282 TH/MM3 Mean Platelet Volume 9.2 FL Neutrophils (%) (Auto) 77.6 % Lymphocytes (%) (Auto) 12.4 % Monocytes (%) (Auto) 8.4 % Eosinophils (%) (Auto) 0.6 % Basophils (%) (Auto) 1.0 % Neutrophils # (Auto) 4.7 TH/MM3 Lymphocytes # (Auto) 0.8 TH/MM3 Monocytes # (Auto) 0.5 TH/MM3 Eosinophils # (Auto) 0.0 TH/MM3 Basophils # (Auto) 0.1 TH/MM3 CBC Comment DIFF FINAL Differential Comment Sodium Level 135 MEQ/L Potassium Level 4.1 MEQ/L Chloride Level 103 MEQ/L Carbon Dioxide Level 28.4 MEQ/L Anion Gap 4 MEQ/L Blood Urea Nitrogen 16 MG/DL Creatinine 1.12 MG/DL Estimat Glomerular Filtration 46 ML/MIN Rate Random Glucose 134 MG/DL Calcium Level 9.0 MG/DL Objective Remarks GENERAL: Well-developed well-nourished. In no acute distress. Oriented to place, soft, and day have a week. Disoriented to birthday, month, year. SKIN: Warm and dry. Nubia in place in left hip, clean. HEENT: Normocephalic. Pupils equal and round. Mucous membranes pink and moist. CARDIOVASCULAR: Regular rate and rhythm. No murmur appreciated. RESPIRATORY: No accessory muscle use. Clear to auscultation. Breath sounds equal bilaterally. GASTROINTESTINAL: Abdomen soft, non-tender, nondistended. Bowel sounds x4. MUSCULOSKELETAL: No obvious deformities. No clubbing or cyanosis. No edema. NEUROLOGICAL: Awake and alert. No focal neurological deficits. Moves upper and lower extremities spontaneously. Normal speech. PSYCHIATRIC: Pleasantly confused mood and affect; insight and judgment limited. Medications and IVs Current Medications Medications (Trade) Dose Ordered Sig/Cb Route Start Time Stop Time Status Last Admin (NS 1000 ml Inj) 1,000 ml @ 83 mls/hr Q12H3M IV 08/15/16 16:34 08/17/16 13:36 (NS Flush) 2 ml UNSCH PRN IV FLUSH 08/15/16 16:45 (NS Flush) 2 ml BID IV FLUSH 08/15/16 21:00 08/15/16 20:47 (Tylenol) 650 mg Q4H PRN PO 08/15/16 16:45 08/17/16 08:47 (Zofran Inj) 4 mg Q6H PRN IVP 08/15/16 16:45 (Reglan Inj) 5 mg Q6H PRN IV PUSH 08/15/16 16:45 (Dulcolax Supp) 10 mg DAILY PRN ID 08/15/16 16:45 (Colace) 100 mg Q12H PO 08/15/16 21:00 08/17/16 21:17 (Lovenox Inj) 40 mg Q24H SQ 08/15/16 18:00 08/17/16 17:11 Naloxone HCl 0.4 mg 0.4 mg UNSCH PRN IV 08/15/16 16:45 (Rocephin Inj/NS Inj) 100 ml @ 200 mls/hr Q24H IV 08/16/16 00:00 A/P Assessment and Plan 86-year-old female with a past medical history of dementia who was initially brought to the ED under Montero act for wandering in traffic and admitted pending possible RETIREMENT placement Dementia with failure to thrive: at this time stable oriented in time, place and person, Toxicology negative, Case management is working on discharge status post evaluation by Psychiatry specialist, no present evidence of depressive symptoms, anxiety, batsheva or psychosis, denies suicidal or homicidal ideation, she denies visual and auditory hallucinations.as superimposed delirium secondary to UTI suspected by Psychiatry specialist No psychotropics recommended at this time. chip loft worker intervention to coordinate with family member a safe discharge planning. ready to discharge to SNF now. UTI: UA with evidence of UTI. Urine cultures no growth to date. treated removed Ceftriaxone. DEONTE Improving continue water intake. Normocytic anemia: Chronic DVT prophylaxis: Lovenox Discussed Condition With Patient nurse and sitter in the room. Okay to discharge to SNF now. Discharge Planning Discharge to SNF [facility] they have Dementia Unit. Marvin Barnett MD Aug 18, 2016 07:54
[2016-08-18] MEDS: SODIUM CHLORIDE 0.9% FLUSH 10 ML FLUSH IV FLUSH SCH (08:35)
[2016-08-18] MEDS: ACETAMINOPHEN 325 MG TAB PO PRN (08:35)
[2016-08-18] MEDS: DOCUSATE SODIUM 100 MG CAP PO SCH (08:35)
[2016-08-18] MEDS ORDERED: LORazepam 0.5 MG TAB PO PRN (09:45)
[2016-08-18 11:56] VITALS: BP 115/56; PULSE 90; RESP 18; TEMP 98
--- NOTE | 2016-08-18 13:30 | HHI.DS ---
Discharge Summary Admission Date Aug 15, 2016 at 16:39 Discharge Date: Aug 18, 2016 Admitting Diagnosis dementia, failure to thrive, placement issue (1) UTI (urinary tract infection) ICD Code: N39.0 Diagnosis: Principal (2) Hyponatremia ICD Code: E87.1 Diagnosis: Secondary (3) Dementia with behavioral disturbance ICD Code: F03.91 Diagnosis: Principal Procedures No procedures performed Brief History - From Admission 86-year-old female with a past medical history of dementia who was initially brought to the ED under [place] act for wandering in traffic. The patient is pleasantly demented and is a poor historian. She does know she is in the hospital, but does not recall her year; she does know that it is Sunday, but does not know the month or year. History is also obtained from EMR and ED communication. The patient states that she lives with her sisters and brother- in-law. Apparently she was recently in a facility, but is now currently residing at home with family. The patient's family is trying to get her into an assisted living facility, hopefully tomorrow. The patient has no acute medical complaints at this time. She denies any dysuria. Apparently she recently had a hip procedure and does have some nubia in her left hip, but cannot state when/why they were placed. She is not sure what medication she is on home, but as please take something as needed when her heart is racing. CBC/BMP: 08/16/16 1435 08/16/16 1435 Significant Findings Laboratory Tests Test 08/16/16 14:35 Red Blood Count 3.31 MIL/MM3 (4.00-5.30) Hemoglobin 9.3 GM/DL (11.6-15.3) Hematocrit 28.3 % (35.0-46.0) Neutrophils (%) (Auto) 77.6 % (16.0-70.0) Monocytes (%) (Auto) 8.4 % (0.0-8.0) Lymphocytes # (Auto) 0.8 TH/MM3 (1.0-4.8) Sodium Level 135 MEQ/L (136-145) Anion Gap 4 MEQ/L (5-15) Creatinine 1.12 MG/DL (0.50-1.00) Estimat Glomerular Filtration 46 ML/MIN (>89) Rate Random Glucose 134 MG/DL (74-106) Imaging No Imaging studies performed PE at Discharge GENERAL: Well-developed well-nourished. In no acute distress. Oriented to place SKIN: Warm and dry. Nubia in place in left hip, clean. HEENT: Normocephalic. Pupils equal and round. Mucous membranes pink and moist. CARDIOVASCULAR: Regular rate and rhythm. No murmur appreciated. RESPIRATORY: No accessory muscle use. Clear to auscultation. Breath sounds equal bilaterally. GASTROINTESTINAL: Abdomen soft, non-tender, nondistended. Bowel sounds x4. MUSCULOSKELETAL: No obvious deformities. No clubbing or cyanosis. No edema. NEUROLOGICAL: Awake and alert. No focal neurological deficits. Moves upper and lower extremities spontaneously. Normal speech. PSYCHIATRIC: Pleasantly confused mood and affect; insight and judgment limited. Hospital Course 86-year-old female with a past medical history of dementia who was initially brought to the ED under Mon[place] act for wandering in traffic. The patient is pleasantly demented and is a poor historian. She does know she is in the hospital, but does not recall her year; she does know that it is Sunday, but does not know the month or year. History is also obtained from EMR and ED communication. The patient states that she lives with her sisters and [id number]. Apparently she was recently in a facility, but is now currently residing at home with family. The patient's family is trying to get her into an assisted living facility, hopefully tomorrow. The patient has no acute medical complaints at this time. She denies any dysuria. Apparently she recently had a hip procedure and does have some nubia in her left hip, but cannot state when/why they were placed. She is not sure what medication she is on home, but as please take something as needed when her heart is racing. patient stable seen in the room in the presence of sitter and discussed with nurse Miss Michelle arciniega, awaiting for placement no nausea, vomit or diarrhea. 08/17 Stable seen in the room in the presence of sitter and discussed with nurse , non authorized the patient to be without IV line in place due to that the patient is hospitalized and needs a saline lock in place for Code purposes. awaiting for placement 08/18 Seen in her room in the presence of nurse and sitter, discussed with Advanced Nursing Professor no new complaint by patient, but as per nurse refused everything. No nausea, vomit or diarrhea. Assessment and Plan 86-year-old female with a past medical history of dementia who was initially brought to the ED under [place] act for wandering in traffic and admitted pending possible [facility] placement Dementia with failure to thrive: at this time stable oriented in time, place and person, Toxicology negative, Case management is working on discharge status post evaluation by Psychiatry specialist, no present evidence of depressive symptoms, anxiety, batsheva or psychosis, denies suicidal or homicidal ideation, she denies visual and auditory hallucinations.as superimposed delirium secondary to UTI suspected by Psychiatry specialist No psychotropics recommended at this time. 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 ready to discharge to SNF now. UTI: UA with evidence of UTI. Urine cultures no growth to date. treated removed Ceftriaxone. DEONTE Improving continue water intake. Normocytic anemia: Chronic DVT prophylaxis: Lovenox Discussed Condition With Patient nurse and sitter in the room. Okay to discharge to SNF now. Discharge Planning Discharge to SNF [facility] they have Dementia Unit. Pt Condition on Discharge: Stable Discharge Disposition: Discharge to SNF Discharge Time: > 30 minutes Discharge Instructions DIET: Follow Instructions for: As Tolerated, No Restrictions Activities you can perform: Regular-No Restrictions Marvin Barnett MD Aug 18, 2016 13:30
[2016-08-18 16:12] VITALS: PULSE 56
== END 2016-08-18 16:43 | disposition home or self-care (01) ==
LOC: NEDAMB 21:01 → NEDA 08-15 16:39 → NEPFCDU 08-15 20:30
PROVIDERS: ADMIT Internal Medicine; ATTEND Internal Medicine
DX: F03.91 Unspecified dementia, unspecified severity, with behavioral disturbance (principal); R62.7 Adult failure to thrive; N39.0 Urinary tract infection, site not specified; N17.9 Acute kidney failure, unspecified; E87.1 Hypo-osmolality and hyponatremia; D64.9 Anemia, unspecified
CPT/HCPCS: 80048; 80053; 80307; 81001; 82948; 85025; 87086; 96365; 97162; 97166; 99284; G0378; G8987; G8988; J0696; J1650; J7030; J7040

== ENCOUNTER 2017-09-07 22:34 | Inpatient (IN) | payer MEDICARE, OTHER ==
[~2017-09-07] VITALS: Ht 172.7 cm; Wt 65.0 kg
[~2017-09-07 22:34] MED LIST: CITRSOL3; DULC100C PO; ENEMENE5; GLIM1TAB PO; NAME10TA PO; NAME5TAB2 PO; [UNRECOGNIZED DRUG - CODE] PO
[2017-09-07 22:50] VITALS: BP 143/75; PULSE 79; RESP 16; TEMP 98.4; O2SAT 98
--- NOTE | 2017-09-07 23:32 | RADRPT ---
EXAM DATE/TIME: 09/07/2017 23:20 [facility] COMPARISON: No previous studies available for comparison. INDICATIONS : Right hip pain post fall. MEDICAL HISTORY : None. SURGICAL HISTORY : Right hip arthroplasty ORIF Lt hip ENCOUNTER: Initial ACUITY: 1 day PAIN SCORE: 10/10 LOCATION: Right hip FINDINGS: 2 views of the pelvis and right hip reveal a total hip prosthesis on the right. There is an acute fra cture involving the proximal right femur. The fracture involves the lesser trochanter which is pulled medially away from the implant. The more inferior portion of the intramedullary component is a perip herally positioned within the trabecular bone. The tip is visualized. Acetabular component is in the appropriate position. An old left subcapital femoral neck fracture with 3 orthopedic screws. Underlyi ng osteopenia. CONCLUSION: Acute fracture involving the right lesser trochanter in this patient with a right hip implant. Jose Rico Jr., MD on September 07, 2017 at 23:28 Board Certified Radiologist. This report was verified electronically.
[2017-09-07 23:35] LABS: HEMATOCRIT 33.7 % (35.0-46.0); HEMOGLOBIN 11.4 GM/DL (11.6-15.3); MEAN CELL VOLUME 93.9 FL (80.0-100.0); MEAN CORPUSCULAR HEMOGLOBIN 31.7 PG (27.0-34.0); MEAN CORPUSCULAR HGB CONC 33.8 % (32.0-36.0); MEAN PLATELET VOLUME 9.9 FL (7.0-11.0); PLATELET COUNT 334 TH/MM3 (150-450); RED BLOOD COUNT 3.59 MIL/MM3 (4.00-5.30); WHITE BLOOD COUNT 12.4 TH/MM3 (4.0-11.0)
[2017-09-07] MEDS ORDERED: ONDANSETRON HCL 4 MG/2 ML VIAL IV PUSH ONE (23:45)
[2017-09-07] MEDS ORDERED: MORPHINE SULFATE 4 MG/ML INJ IV PUSH ONE (23:45)
[2017-09-07 23:51] LABS: BICARBONATE 25.7 MEQ/L (21.0-32.0); CALCIUM 8.8 MG/DL (8.5-10.1); CREATININE 1.39 MG/DL (0.50-1.00)
--- NOTE | 2017-09-08 | RADRPT ---
EXAM DATE/TIME: 09/07/2017 23:44 [facility] COMPARISON: No previous studies available for comparison. INDICATIONS : Trauma due to fall. MEDICAL HISTORY : None. SURGICAL HISTORY : Right hip arthroplasty ORIF Lt hip ENCOUNTER: Initial ACUITY: 1 day PAIN SCORE: 0/10 LOCATION: Bilateral chest FINDINGS: A single view of the chest demonstrates the lungs to be symmetrically aerated without evidence of mas s, infiltrate or effusion. The cardiomediastinal contours are unremarkable. Osseous structures are intact. CONCLUSION: No acute disease. Jose Rico Jr., MD on September 07, 2017 at 23:58 Board Certified Radiologist. This report was verified electronically.
[2017-09-08] MEDS ORDERED: ASPI-183 PO (00:25)
[2017-09-08] MEDS ORDERED: CIPR250T52 PO (00:26)
[2017-09-08] MEDS ORDERED: B-12100T PO (00:26)
[2017-09-08] MEDS ORDERED: [UNRECOGNIZED DRUG - CODE] TOPICAL (00:26)
[2017-09-08] MEDS ORDERED: LORA0.5T PO (00:26)
[2017-09-08] MEDS ORDERED: FERR325T18 PO (00:26)
[2017-09-08] MEDS ORDERED: LISI-515 PO (00:26)
[2017-09-08] MEDS ORDERED: POLY17S PO (00:26)
[2017-09-08] MEDS ORDERED: PERC5TAB12 PO (00:26)
[2017-09-08] MEDS ORDERED: ESCI5TAB PO (00:26)
--- NOTE | 2017-09-08 00:32 | PD ---
HPI Chief Complaint: Fall Time Seen by Provider: 00:10 Travel History International Travel<30 days: No Contact w/Intl Traveler<30days: No Traveled to known affect area: No History of Present Illness HPI 87-year-old white female presents emergency department by EMS from [facility] for evaluation of right hip pain after a fall. She was attempting to get out of bed and fell. She complains of pain in her right hip as well as neck pain. Patient is a somewhat poor historian. Patient has a history of hypertension, diabetes, anxiety, depression, GERD, iron deficiency anemia. There is no report of syncope. She did not report any chest pain or shortness of breath. Symptoms are moderate. Worse with attempting to weight- bear removed. Some relief with remaining still. PFSH Past Medical History Narrative Medical Hypertension, diabetes, anxiety, depression, GERD, iron deficiency anemia, history of UTI Diabetes: Yes Patient Takes Glucophage: No Endocrine: Yes Musculoskeletal: No Neurologic: Yes (Dementia/Alzheimer's) Tetanus Vaccination: Unknown Past Surgical History Narrative Surgical Right hip replacement, left hip fracture with compression screws Appendectomy: Yes Other Surgery: Yes Social History Alcohol Use: No Tobacco Use: No Substance Use: No Allergies-Medications (Allergen,Severity, Reaction): Coded Allergies: No Known Allergies (Unverified Adverse Reaction, Unknown, 09/08/17) Reported Meds & Prescriptions Reported Meds & Active Scripts Active Reported Namenda (Memantine) 5 Mg Tab 5 Mg PO BID PRN Namenda (Memantine) 5 Mg Tab 5 Mg PO DAILY Namenda (Memantine) 10 Mg Tab 10 Mg PO DAILY Glimepiride 1 Mg Tab 1 Mg PO DAILY Take with breakfast or first main meal Enema Disposable (Sodium Phosphates) 1 Holly Holly PRN Dulcolax Stool Softener (Docusate Sodium) 100 Mg Cap 100 Mg PO BID PRN B-12 (Cyanocobalamin) 250 Mcg Tab 250 Mcg PO DAILY Citroma Liq (Magnesium Citrate) 300 Ml Liq PRN Review of Systems ROS Limitations: Poor Historian Physical Exam Narrative GENERAL: Well-developed, well-nourished in no apparent distress. Nontoxic appearing. Patient is in a c-collar. Patient is alert but pleasantly confused. HEAD: Normocephalic, atraumatic. EYES: Pupils equal round and reactive. Extraocular motions intact. No scleral icterus. No injection or drainage. ENT: Nose clear. Throat without erythema, tonsillar hypertrophy or exudate. Uvula midline. Airway patent. NECK: Trachea midline. Supple, nontender, moves head freely. The patient complains of lower cervical tenderness. CARDIOVASCULAR: Regular rate and rhythm without murmurs, gallops, or rubs. RESPIRATORY: Clear to auscultation. Breath sounds equal bilaterally. No wheezes , rales, or rhonchi. GASTROINTESTINAL: Abdomen soft, non-tender, nondistended. No hepato-splenomegaly , or palpable masses. No guarding. Indwelling Duran catheter. EXTREMITIES: No clubbing, cyanosis, +1 pedal edema. Patient complains of pain in the right hip with decreased range of motion. No pain in the knee, ankle or foot. She has intact sensation with good pulses. The left lower extremity has an abrasion over the knee but no laceration. There is no pain in the hip, knee , ankle or foot. The left upper extremity has a abrasion over the left elbow forearm but no pain in the shoulder, elbow, wrist or hand. The right upper extremities unremarkable. BACK: Nontender without deformity. No flank tenderness. NEUROLOGICAL: Awake, alert and oriented to person.Cranial nerves grossly intact. Motor and sensory grossly within normal limits. Normal speech. Data Data Last Documented VS Vital Signs Date Time Temp Pulse Resp B/P (MAP) Pulse Ox O2 Delivery O2 Flow Rate FiO2 09/07/17 22:50 98.4 79 16 143/75 (97) 98 Orders Orders Cbc No Diff, Includes Plts (09/07/17 22:56) Basic Metabolic Panel (Bmp) (09/07/17 22:56) Hip, Ap Only W Ap Pelvis (09/07/17 ) Iv Access Insert/Monitor (09/07/17 23:33) Ondansetron Inj (Zofran Inj) (09/07/17 23:45) Morphine Inj (Morphine Inj) (09/07/17 23:45) Electrocardiogram (09/07/17 23:33) Prothrombin Time / Inr (Pt) (09/07/17 23:33) Act Partial Throm Time (Ptt) (09/07/17 23:33) Urinalysis - C+S If Indicated (09/07/17 23:33) Chest, Single Ap (09/07/17 23:33) Type And Screen (09/07/17 23:33) Ct Brain W/O Iv Contrast(Rout) (09/08/17 00:15) Ct Cerv Spine W/O Contrast (09/08/17 00:15) Labs Laboratory Tests Test 09/07/17 23:20 White Blood Count 12.4 TH/MM3 Red Blood Count 3.59 MIL/MM3 Hemoglobin 11.4 GM/DL Hematocrit 33.7 % Mean Corpuscular Volume 93.9 FL Mean Corpuscular Hemoglobin 31.7 PG Mean Corpuscular Hemoglobin Concent 33.8 % Red Cell Distribution Width 13.0 % Platelet Count 334 TH/MM3 Mean Platelet Volume 9.9 FL Blood Urea Nitrogen 35 MG/DL Creatinine 1.39 MG/DL Random Glucose 171 MG/DL Calcium Level 8.8 MG/DL Sodium Level 135 MEQ/L Potassium Level 4.3 MEQ/L Chloride Level 101 MEQ/L Carbon Dioxide Level 25.7 MEQ/L Anion Gap 8 MEQ/L Estimat Glomerular Filtration Rate 36 ML/MIN MDM Medical Decision Making Medical Screen Exam Complete: Yes Emergency Medical Condition: Yes Medical Record Reviewed: Yes Interpretation(s) Last 24 hours Impressions Chest X-Ray 09/07/17 2333 Signed Impressions: Service Date/Time: Thursday, September 07, 2017 23:44 - CONCLUSION: No acute disease. Jose Rico Jr., MD Hip and Pelvis X-Ray 09/07/17 0000 Signed Impressions: Service Date/Time: Thursday, September 07, 2017 23:20 - CONCLUSION: Acute fracture involving the right lesser trochanter in this patient with a right hip implant. Jose Rico Jr., MD Differential Diagnosis MDM: High Differential diagnoses: Fracture, sprain, strain, dislocation, contusion, neurovascular injury Narrative Course IV access is obtained. Patient was given 4 mg of Zofran IV, 4 mg of morphine IV , routine laboratory tests sent for analysis. X-ray of the right hip and pelvis , chest x-ray. CT scan of the head and neck. Diagnosis Primary Impression: Closed right hip fracture Qualified Codes: S72.001A - Fracture of unspecified part of neck of right femur, initial encounter for closed fracture Condition: Stable Nikolas Johnson Sep 08, 2017 00:32
--- NOTE | 2017-09-08 00:41 | RADRPT ---
EXAM DATE/TIME: 09/08/2017 00:25 [facility] COMPARISON: No previous studies available for comparison. INDICATIONS : Trauma, fall. RADIATION DOSE: 34.82 CTDIvol (mGy) MEDICAL HISTORY : Dementia. Diabetes mellitus type 2. SURGICAL HISTORY : None. ENCOUNTER: Initial ACUITY: 1 day PAIN SCALE: 0/10 LOCATION: cranial TECHNIQUE: Multiple contiguous axial images were obtained of the head. Using automated exposure control and adj ustment of the mA and/or kV according to patient size, radiation dose was kept as low as reasonably a chievable to obtain optimal diagnostic quality images. DICOM format image data is available electro nically for review and comparison. FINDINGS: CEREBRUM: Atrophy. Periventricular low attenuation change involving both cerebral hemispheres. The ventricles a re normal for age. No evidence of midline shift, mass lesion, hemorrhage or acute infarction. No ex tra-axial fluid collections are seen. POSTERIOR FOSSA: The cerebellum and brainstem are intact. The 4th ventricle is midline. The cerebellopontine angle i s unremarkable. EXTRACRANIAL: The visualized portion of the orbits is intact. SKULL: The calvaria is intact. No evidence of skull fracture. CONCLUSION: 1. No acute intracranial abnormality. 2. Atrophy and chronic small vessel ischemic change. Jose Rico Jr., MD on September 08, 2017 at 0:39 Board Certified Radiologist. This report was verified electronically.
--- NOTE | 2017-09-08 00:44 | RADRPT ---
EXAM DATE/TIME: 09/08/2017 00:25 [facility] COMPARISON: No previous studies available for comparison. INDICATIONS : Trauma, fall. RADIATION DOSE: 14.62 CTDIvol (mGy) MEDICAL HISTORY : Dementia. Diabetes mellitus type 2. SURGICAL HISTORY : None. ENCOUNTER: Initial ACUITY: 1 day PAIN SCALE: 0/10 LOCATION: neck TECHNIQUE: Volumetric scanning of the cervical spine was performed. Multiplanar reconstructions in the sagittal, coronal and oblique axial planes were performed. Using automated exposure control and adjustment o f the mA and/or kV according to patient size, radiation dose was kept as low as reasonably achievable to obtain optimal diagnostic quality images. DICOM format image data is available electronically f or review and comparison. FINDINGS: VERTEBRAE: Normal vertebral body height. ALIGNMENT: No evidence of subluxation. Calcified plaque throughout the carotid arteries bilaterally. Several small nodules involve the thyro id. C2-C3: The bony spinal canal is normal in size. No evidence of disc bulge or herniation. The neural forami na are bilaterally patent. C3-C4: The bony spinal canal is normal in size. No evidence of disc bulge or herniation. The neural forami na are bilaterally patent. C4-C5: The bony spinal canal is normal in size. No evidence of disc bulge or herniation. The neural forami na are bilaterally patent. C5-C6: There is a left central disc protrusion abuts the cord. Neural foramina are patent bilaterally. C6-C7: The bony spinal canal is normal in size. No evidence of disc bulge or herniation. The neural forami na are bilaterally patent. C7-T1: The bony spinal canal is normal in size. No evidence of disc bulge or herniation. The neural forami na are bilaterally patent. CONCLUSION: 1. No fracture or dislocation. 2. C6-C7 disc protrusion. Jose Rico Jr., MD on September 08, 2017 at 0:40 Board Certified Radiologist. This report was verified electronically.
[2017-09-08] MEDS ORDERED: SENNOSIDES 8.6 MG TAB PO PRN ×2 (00:45→19:15)
[2017-09-08] MEDS ORDERED: GLUCAGON 1 MG/ML VIAL OTHER PRN (00:45)
[2017-09-08] MEDS ORDERED: BISACODYL 10 MG SUPP RECTAL PRN ×2 (00:45→19:15)
[2017-09-08] MEDS ORDERED: MAGNESIUM HYDROXIDE SUSP 30 ML CUP PO PRN ×2 (00:45→19:15)
[2017-09-08] MEDS ORDERED: DEXTROSE 50% IN WATER 50 ML VIAL(D50) IV PUSH PRN (00:45)
[2017-09-08] MEDS ORDERED: SODIUM CHLORIDE 0.9% FLUSH 10 ML FLUSH IV FLUSH PRN ×2 (00:45→19:15)
[2017-09-08] MEDS ORDERED: ONDANSETRON HCL 4 MG/2 ML VIAL IVP PRN (00:45)
[2017-09-08] MEDS ORDERED: LACTULOSE SYRUP 20 GM/30 ML CUP PO PRN ×2 (00:45→19:15)
[2017-09-08] MEDS ORDERED: MORPHINE SULFATE 2 MG/ML SYRINGE IV PUSH PRN (00:45)
[2017-09-08] MEDS ORDERED: ACETAMINOPHEN 325 MG TAB PO PRN (00:45)
[2017-09-08] MEDS ORDERED: PILL SPLITTER OTHER PRN (01:00)
[2017-09-08] MEDS: SODIUM CHLOR 0.9% 1000 ML INJ 1,000 ML IV SCH ×3 (01:26→20:35)
[2017-09-08 01:27] LABS: AMORPHOUS SEDIMENT, URINE RARE; BILIRUBIN, URINE NEG (NEG); BLOOD, URINE MOD (NEG); GLUCOSE,URINE NEG (NEG); HYALINE CAST, URINE 5 /lpf (RARE); KETONE, URINE NEG (NEG); MUCUS URINE FEW /lpf (OCC); NITRITE,URINE NEG (NEG); PH, URINE 5.5 (5.0-8.5); SQUAMOUS EPITHELIAL CELL URINE 4 /hpf (0-5); URINE COLOR YELLOW (YELLW/STRAW); URINE LEUKOCYTE ESTERASE LARGE (NEG)
[2017-09-08 01:34] LABS: INTERNATIONAL NORMALIZED RATIO 1.2 RATIO
--- NOTE | 2017-09-08 03:40 | HHI.HP ---
[facility] Service [facility] Hospitalists Primary Care Physician Unknown Admission Diagnosis Right hip fracture Diagnoses: (1) Fall Diagnosis: Principal (2) Hip fracture, right Diagnosis: Principal (3) Renal insufficiency Diagnosis: Principal (4) UTI (urinary tract infection) Diagnosis: Principal (5) DM (diabetes mellitus) Diagnosis: Principal Travel History International Travel<30 Days: No Contact w/Intl Traveler <30 Da: No Traveled to Known Affected Are: No History of Present Illness This is an 87-year-old female with a PMH of HTN, Anxiety, Depression, Anemia, Dementia, Recurrent UTI and DM who was brought to the ER by EMS from [facility] for complaints of right hip pain after a fall. Per report, patient was trying to get out of bed without using assistive device and had subsequent fall. Pt poor historian, unable to obtain much history. Does note right hip pain, unable to quantify, worse w/ movement. No other complaints. On arrival, BP 143/75, HR 79, O2 sat 98% on RA, Afebrile. WBC 12.4. Creatinine 1.39, previously 1.12 on 08/16/2016. INR 1.2. UA positive for UTI. CT Head with no acute findings. CT C-spine with no fracture or dislocation. CXR with no acute findings. Hip X-ray with acute fracture of right lesser trochanter. Review of Systems Except as stated in HPI: all other systems reviewed are Neg ROS: 14 point review of systems otherwise negative. Past Family Social History Past Medical History PMH: HTN, Anxiety, Depression, Anemia, Dementia, Recurrent UTI and DM Past Surgical History PAST SURGICAL HISTORY: Right Hip Replacement, Left Hip Screws, Appendectomy Allergies: Coded Allergies: No Known Allergies (Unverified Allergy, Unknown, 09/08/17) Family History PAST FAMILY HISTORY: Reviewed. No h/o DM or CAD Social History PAST SOCIAL HISTORY: Negative for alcohol, tobacco or drugs. Physical Exam Vital Signs Vital Signs Date Time Temp Pulse Resp B/P (MAP) Pulse Ox O2 Delivery O2 Flow Rate FiO2 09/07/17 22:50 98.4 79 16 143/75 (97) 98 Physical Exam PE: GENERAL: Elderly female in no acute distress. HEENT: PERRLA, EOMI. No scleral icterus or conjunctival pallor. No lid lag or facial droop. CARDIOVASCULAR: Regular rate and rhythm. No obvious murmurs to auscultation. No chest tenderness to palpation. RESPIRATORY: No obvious rhonchi or wheezing. Clear to auscultation. Breath sounds equal bilaterally. GASTROINTESTINAL: Abdomen soft, non-tender, nondistended. BS normal. MUSCULOSKELETAL: Extremities without clubbing, cyanosis, or edema. No obvious deformities. Decreased ROM of RLE due to injury. NEUROLOGICAL: Awake, alert, oriented to person only. No focal neurologic deficits. Moving both upper and lower extremities spontaneously. Laboratory Laboratory Tests Test 09/07/17 23:20 09/08/17 01:05 White Blood Count 12.4 Red Blood Count 3.59 Hemoglobin 11.4 Hematocrit 33.7 Mean Corpuscular Volume 93.9 Mean Corpuscular Hemoglobin 31.7 Mean Corpuscular Hemoglobin Concent 33.8 Red Cell Distribution Width 13.0 Platelet Count 334 Mean Platelet Volume 9.9 Blood Urea Nitrogen 35 Creatinine 1.39 Random Glucose 171 Calcium Level 8.8 Sodium Level 135 Potassium Level 4.3 Chloride Level 101 Carbon Dioxide Level 25.7 Anion Gap 8 Estimat Glomerular Filtration Rate 36 Prothrombin Time 12.0 Prothromb Time International Ratio 1.2 Activated Partial Thromboplast Time 37.4 Urine Color YELLOW Urine Turbidity HAZY Urine pH 5.5 Urine Specific [place] 1.020 Urine Protein 30 Urine Glucose (UA) NEG Urine Ketones NEG Urine Occult Blood MOD Urine Nitrite NEG Urine Bilirubin NEG Urine Urobilinogen 2.0 Urine Leukocyte Esterase LARGE Urine RBC 52 Urine WBC 21 Urine Squamous Epithelial Cells 4 Urine Amorphous Sediment RARE Urine Hyaline Casts 5 Urine Mucus FEW Urine Yeast with Hyphae MOD Urine Yeast (Budding) MANY Microscopic Urinalysis Comment CULTURE INDICATED Date/Time Source Procedure Growth Status 09/08/17 01:05 Urine Random Urine Urine Culture Pending Received Result Diagram: 09/07/17231909/07/172319 Caprini VTE Risk Assessment Caprini VTE Risk Assessment: No/Low Risk (score <= 1) Caprini Risk Assessment Model Point Value = 1 Point Value = 2 Point Value = 3 Point Value = 5 Age 41-60 Minor surgery BMI > 25 kg/m2 Swollen legs Varicose veins or History of unexplained or recurrent spontaneous Oral contraceptives or hormone replacement Sepsis (< 1 month) Serious lung disease, including pneumonia (< 1 month) Abnormal pulmonary function Acute myocardial infarction Congestive heart failure (< 1 month) History of inflammatory bowel disease Medical patient at bed rest Age 61-74 Arthroscopic surgery Major open surgery (> 45 min) Laparoscopic surgery (> 45 min) Malignancy Confined to bed (> 72 hours) Immobilizing plaster cast Central venous access Age >= 75 History of VTE Family history of VTE Factor V Leiden Prothrombin [id number] Lupus anticoagulant Anticardiolipin antibodies Elevated serum homocysteine Heparin-induced thrombocytopenia Other congenital or acquired thrombophilia Stroke (< 1 month) Elective arthroplasty Hip, pelvis, or leg fracture Acute spinal cord injury (< 1 month) Prophylaxis Regimen Total Risk Factor Score Risk Level Prophylaxis Regimen 0-1 Low Early ambulation 2 Moderate Order ONE of the following: *Sequential Compression Device (SCD) *Heparin 5000 units SQ BID 3-4 Higher Order ONE of the following medications: *Heparin 5000 units SQ TID *Enoxaparin/Lovenox 40 mg SQ daily (WT < 150 kg, CrCl > 30 mL/min) *Enoxaparin/Lovenox 30 mg SQ daily (WT < 150 kg, CrCl > 10-29 mL/min) *Enoxaparin/Lovenox 30 mg SQ BID (WT < 150 kg, CrCl > 30 mL/min) AND/OR *Sequential Compression Device (SCD) 5 or more Highest Order ONE of the following medications: *Heparin 5000 units SQ TID (Preferred with Epidurals) *Enoxaparin/Lovenox 40 mg SQ daily (WT < 150 kg, CrCl > 30 mL/min) *Enoxaparin/Lovenox 30 mg SQ daily (WT < 150 kg, CrCl > 10-29 mL/min) *Enoxaparin/Lovenox 30 mg SQ BID (WT < 150 kg, CrCl > 30 mL/min) AND *Sequential Compression Device (SCD) Assessment and Plan Problem List: (1) Fall ICD Code: W19.XXXA - Unspecified fall, initial encounter (2) Hip fracture, right ICD Code: S72.001A - Fracture of unspecified part of neck of right femur, initial encounter for closed fracture (3) Renal insufficiency ICD Code: N28.9 - Disorder of kidney and ureter, unspecified (4) UTI (urinary tract infection) ICD Code: N39.0 - Urinary tract infection, site not specified (5) DM (diabetes mellitus) ICD Code: E11.9 - Type 2 diabetes mellitus without complications Assessment and Plan A/P: 1. Fall: s/p mechanical fall, no reported LOC, unclear if head trauma, CT Head /C-Spine w/ no acute findings/fracture, images reviewed by me 2. Right Hip Fx: secondary to above, Hip X-ray w/ acute fracture involving right lesser trochanter with previous right hip implant, images reviewed by me. Consult Ortho for surgical intervention. NPO, IVF, analgesics/antiemetics as needed. 3. Renal Insufficiency: Acute on Chronic. Creatinine 1.39, previously 1.12 on 08/16/2016. IVF for hydration, repeat labs in a.m. 4. UTI: U/a positive for UTI, follow-up cultures, start Rocephin IV, IVF. 5. DM: Sliding scale w/ Accu-Cheks. 6. DVT Prophylaxis: Anticoagulation post op 7. Social work for d/c planning as needed 8. Case discussed w/ ER physician at length. Lab/record/imaging reviewed by me. Physician Certification 2 Midnight Certification Type: Admission for Inpatient Services Order for Inpatient Services The services are ordered in accordance with Medicare regulations or non- Medicare payer requirements, as applicable. In the case of services not specified as inpatient-only, they are appropriately provided as inpatient services in accordance with the 2-midnight benchmark. Estimated LOS (days): 2 days is the estimated time the patient will need to remain in the hospital, assuming treatment plan goals are met and no additional complications. Post-Hospital Plan: Not yet determined Maddy Burch MD Sep 08, 2017 03:40
[2017-09-08] MEDS: cefTRIAXone INJ 1,000 MG in SODIUM CHLORIDE 0.9% INJ 100 ML IV SCH (03:58)
[2017-09-08] MEDS: INSULIN ASPART SUPPLEMENTAL SCALE SQ SCH ×4 (08:00→21:00)
[2017-09-08] MEDS: ESCITALOPRAM OXALATE 10 MG TAB PO SCH (09:00)
[2017-09-08] MEDS: MEMANTINE HCL 10 MG TAB PO SCH (09:00)
[2017-09-08] MEDS ORDERED: DOCUSATE SODIUM 50 MG/SENNA 8.6 MG TAB PO SCH (09:00)
[2017-09-08] MEDS ORDERED: SODIUM CHLORIDE 0.9% FLUSH 10 ML FLUSH IV FLUSH SCH (09:00)
[2017-09-08] MEDS ORDERED: ACETAMINOPHEN 1000 MG/100 ML 100 ML IV ONE (09:05)
[2017-09-08] MEDS ORDERED: ceFAZolin INJ 1,000 MG VIAL ONE (09:43)
[2017-09-08] MEDS ORDERED: GENTAMICIN SULFATE 80 MG/2 ML VIAL ONE (09:44)
[2017-09-08 11:54] LABS: AUTOMATED NEUTROPHIL # 6.3 TH/MM3 (1.8-7.7); BASOPHIL % 0.5 % (0.0-2.0); EOSINOPHIL # 0.2 TH/MM3 (0-0.4); EOSINOPHIL % 2.7 % (0.0-4.0); HEMATOCRIT 23.4 % (35.0-46.0); HEMOGLOBIN 8.4 GM/DL (11.6-15.3); LYMPH % 6.8 % (9.0-44.0); LYMPHOCYTE # 0.5 TH/MM3 (1.0-4.8); MEAN CELL VOLUME 93.5 FL (80.0-100.0); MEAN CORPUSCULAR HEMOGLOBIN 33.5 PG (27.0-34.0); MEAN CORPUSCULAR HGB CONC 35.8 % (32.0-36.0); MEAN PLATELET VOLUME 9.4 FL (7.0-11.0); MONO % 7.2 % (0.0-8.0); MONOCYTE # 0.6 TH/MM3 (0-0.9); NEUT % 82.8 % (16.0-70.0); PLATELET COUNT 269 TH/MM3 (150-450); RED CELL DISTRIBUTION WIDTH 12.9 % (11.6-17.2); WHITE BLOOD COUNT 7.6 TH/MM3 (4.0-11.0)
[2017-09-08] MEDS ORDERED: LABETALOL HCL 100 MG/20 ML VIAL IV ONE (12:00)
[2017-09-08] MEDS ORDERED: PROPOFOL 200 MG/20 ML AMP IV ONE (12:00)
[2017-09-08] MEDS ORDERED: ROCURONIUM INJ 50 MG/5 ML SYRINGE IV PUSH ONE (12:00)
[2017-09-08] MEDS ORDERED: PHENYLEPH/NS 1000 MCG/10 ML SYR IV ONE (12:00)
[2017-09-08] MEDS ORDERED: ePHEDrine/NS 25 MG/5 ML SYRINGE IV ONE (12:00)
[2017-09-08] MEDS ORDERED: SUCCINYLCHOLINE CHLORIDE 100 MG/5 ML SYRINGE IV PUSH ONE (12:00)
[2017-09-08] MEDS ORDERED: LIDOCAINE HCL 1% PF 5 ML SYRINGE OTHER ONE (12:00)
[2017-09-08] MEDS ORDERED: PHENYLEPHRINE HCL 10 MG/ML VIAL IV ONE (12:00)
[2017-09-08] MEDS ORDERED: ESMOLOL HCL 100 MG/10 ML VIAL IV ONE (12:00)
[2017-09-08] MEDS ORDERED: ONDANSETRON HCL 4 MG/2 ML VIAL IV ONE (12:00)
[2017-09-08] MEDS ORDERED: *morphine SULFATE 4 MG/ML PERIprocedure ONLY ONE (13:18)
[2017-09-08] MEDS ORDERED: DO NOT ADM ANY ANTICOAGULANT DRUGS PRN (13:45)
--- NOTE | 2017-09-08 14:35 | RADRPT ---
EXAM DATE/TIME: 09/08/2017 13:39 [place] COMPARISON: No previous studies available for comparison. INDICATIONS : Post operative, right hip. MEDICAL HISTORY : Diabetes mellitus type II. SURGICAL HISTORY : None. ENCOUNTER: Initial ACUITY: 1 day PAIN SCORE: 10 LOCATION: Right Hip. FINDINGS: Examination of the right hip was performed with AP Pelvis. Right total hip arthroplasty. Fracture th rough the lesser trochanter which is secured with 2 cerclage wires. Bony pelvis is intact CONCLUSION: Right total hip arthroplasty as above. Josh Muniz MD on September 08, 2017 at 14:31 Board Certified Radiologist. This report was verified electronically.
[2017-09-08 16:00] VITALS: BP 95/50; PULSE 96; RESP 19; TEMP 97.2; O2SAT 100
[2017-09-08] MEDS: ACETAMINOPHEN/HYDROcodone 325 MG/5 MG TAB PO PRN (17:54)
--- NOTE | 2017-09-08 18:48 | EKG ---
Date Performed: 09/08/2017 Time Performed: 06:56:47 PTAGE: 87 years EKG: Sinus rhythm POSSIBLE LEFT ATRIAL ENLARGEMENT POSSIBLE INFERIOR MYOCARDIAL INFARCTION RIGHT AXIS DEVIATION ABNORM AL ECG NO PREVIOUS TRACING DOCTOR: Shiva Villalba Interpretating Date/Time 09/08/2017 18:47:57
--- NOTE | 2017-09-08 18:59 | HHI.PR ---
Addendum to Inpatient Note Addendum Reason: Additional Documentation Additional Information Pt seen a couple hours ago. Just got out of PACU. Somnolent but does wake up, pain controlled, no nausea/vomiting. Sister at bedside, tells me that nursing staff trying to switch her to another room closer to the nurses station. Sister inquires about resuming her dementia meds. Pt appears comfortable. HR rrr w mumurs, lungs are clear, abdomen soft, NT. 1. Fall: s/p mechanical fall, no reported LOC, unclear if head trauma, CT Head /C-Spine w/ no acute findings/fracture 2. Right Hip Fx: secondary to above, Hip X-ray w/ acute fracture involving right lesser trochanter with previous right hip implant. Ortho following, pt just came back from PACU from bipolar revision, official report pending. analgesics/antiemetics/pain managment/ abx/dvt proph per ortho 3. Renal Insufficiency: Acute on Chronic. Creatinine 1.39, previously 1.12 on 08/16/2016. IVF for hydration, repeat labs in a.m. 4. UTI: U/a positive for UTI, follow-up cultures, on Rocephin IV, IVF. 5. DM: Sliding scale w/ Accu-Cheks. Anya Allison MD Sep 08, 2017 18:59
--- NOTE | 2017-09-08 19:06 | PD.CONS ---
cc: Jonathan Barillas Jr., MD HPI Service Orthopedic Surgeons Consult Requested By Primary Care Physician Unknown Admission Diagnosis Right hip fracture Diagnoses: (1) Fall (2) Hip fracture, right (3) Renal insufficiency (4) UTI (urinary tract infection) (5) DM (diabetes mellitus) History of Present Illness 87-year-old female with a PMH of HTN, Anxiety, Depression, Anemia, Dementia, Recurrent UTI and DM who was brought to the ER by EMS from [facility] for complaints of right hip pain after a fall. Per report, patient was trying to get out of bed without using assistive device and had subsequent fall. Pt poor historian, unable to obtain much history. -X-ray taken the emergency department reveal periprosthetic fracture right femur with subsidence of the femoral stem.. -Denies any head injuries. Denies loss of consciousness. -Pain exacerbated by any range of motion, WB, relieved at rest and with IV pain medicine, pain is sharp nonradiating, dull, not associated with any paresthesia and numbness to the extremity. ROS - General Review of Systems Except as stated in HPI: all other systems reviewed are Neg ROS: 14 point review of systems otherwise negative. PFSH Past Family Social History Past Medical History PMH: HTN, Anxiety, Depression, Anemia, Dementia, Recurrent UTI and DM Past Surgical History PAST SURGICAL HISTORY: Right Hip Replacement, Left Hip Screws, Appendectomy Allergies: Coded Allergies: No Known Allergies (Unverified Allergy, Unknown, 09/08/17) Family History PAST FAMILY HISTORY: Reviewed. No h/o DM or CAD Social History PAST SOCIAL HISTORY: Negative for alcohol, tobacco or drugs. Past Family Social History Past Medical History PMH: HTN, Anxiety, Depression, Anemia, Dementia, Recurrent UTI and DM Past Surgical History PAST SURGICAL HISTORY: Right Hip Replacement, Left Hip Screws, Appendectomy Allergies: Coded Allergies: No Known Allergies (Unverified Allergy, Unknown, 09/08/17) Active Ordered Medications Current Medications Medications (Trade) Dose Ordered Sig/Cb Route Start Time Stop Time Status Last Admin (D50w (Vial) Inj) 50 ml UNSCH PRN IV PUSH 09/08/17 00:45 (Glucagon Inj) 1 mg UNSCH PRN OTHER 09/08/17 00:45 (NovoLOG SUPPLEMENTAL SCALE) 1 ACHS SLIDING SCALE SQ 09/08/17 08:00 09/08/17 12:00 Sodium Chloride 1,000 ml @ 100 mls/hr Q10H IV 09/08/17 00:40 09/08/17 10:40 (NS Flush) 2 ml UNSCH PRN IV FLUSH 09/08/17 00:45 (NS Flush) 2 ml BID IV FLUSH 09/08/17 09:00 (Zofran Inj) 4 mg Q6H PRN IVP 09/08/17 00:45 (Tylenol) 650 mg Q6H PRN PO 09/08/17 00:45 (Selden 5-325 Mg) 1 tab Q4H PRN PO 09/08/17 00:45 09/08/17 17:54 (Morphine Inj) 2 mg Q3H PRN IV PUSH 09/08/17 00:45 09/08/17 01:27 (Jess-Colace) 1 tab BID PO 09/08/17 09:00 (Milk Of Magnesia Liq) 30 ml Q12H PRN PO 09/08/17 00:45 (Senokot) 17.2 mg Q12H PRN PO 09/08/17 00:45 (Dulcolax Supp) 10 mg DAILY PRN RECTAL 09/08/17 00:45 (Lactulose Liq) 30 ml DAILY PRN PO 09/08/17 00:45 (Lexapro) 5 mg DAILY PO 09/08/17 09:00 (Ativan) 0.5 mg Q6H PRN PO 09/08/17 00:45 (Namenda) 10 mg DAILY PO 09/08/17 09:00 (Pill Splitter) 1 ea UNSCH PRN OTHER 09/08/17 01:00 Ceftriaxone Sodium 1000 mg/ Sodium Chloride 100 ml @ 200 mls/hr Q24H IV 09/08/17 04:00 09/08/17 03:58 Miscellaneous Information ALL NURSING DEPARTME... UNSCH PRN .XX 09/08/17 13:45 09/09/17 13:44 Reported Meds & Active Scripts Active Reported Percocet (Oxycodone-Acetaminophen) 5-325 mg Tab 1 Tab PO Q4H PRN Cipro (Ciprofloxacin HCl) 250 Mg Tab 250 Mg PO BID Escitalopram (Escitalopram Oxalate) 5 Mg Tab 5 Mg PO DAILY Polyethylene Glycol 3350 Powder (Polyethylene Glycol) 17 Gram Pow 17 Gm PO DAILY Ferrous Sulfate 325 Mg (65 Mg Iron) Tablet 325 Mg PO DAILY Lisinopril 20 Mg Tab 20 Mg PO DAILY Lorazepam 0.5 Mg Tab 0.5 Mg PO Q6H PRN B-12 (Cyanocobalamin) 100 Mcg Tab 250 Mcg PO DAILY Eucerin Skin Calming Itch Topical (Menthol Topical) 0.1 % Lot 1 Applic TOPICAL DIRECTED PRN Aspirin 325 Mg Tab 325 Mg PO DAILY Namenda (Memantine) 10 Mg Tab 10 Mg PO DAILY Glimepiride 1 Mg Tab 1 Mg PO DAILY Take with breakfast or first main meal Dulcolax Stool Softener (Docusate Sodium) 100 Mg Cap 100 Mg PO BID PRN Family History PAST FAMILY HISTORY: Reviewed. No h/o DM or CAD Social History PAST SOCIAL HISTORY: Negative for alcohol, tobacco or drugs. Physical Exam Vital Signs Vital Signs Date Time Temp Pulse Resp B/P (MAP) Pulse Ox O2 Delivery O2 Flow Rate FiO2 09/08/17 18:46 Nasal Cannula 2.00 09/08/17 16:00 97.2 96 19 95/50 (65) 100 09/08/17 14:40 Nasal Cannula 2.00 09/08/17 14:30 90 19 104/56 (72) 100 Nasal Cannula 4 09/08/17 13:45 92 19 119/55 (76) 100 Nasal Cannula 4 09/08/17 13:30 87 19 96/64 (75) 100 Nasal Cannula 4 09/08/17 13:15 96 19 123/57 (79) 100 Nasal Cannula 4 09/08/17 13:07 98.2 97 19 126/58 (80) 100 Nasal Cannula 4 09/08/17 02:03 15 09/07/17 22:50 98.4 79 16 143/75 (97) 98 Physical Exam Demented Head: NC/AT Neck: No pain with any range of motion and neck. Pulmonary: Normal respiratory effort. Bilateral upper extremity: Unable to assess neurologic function. Full passive range of motion without crepitus or pain. 2+ radial artery pulses. Good cap refill. RIGHT lower extremity: Shortened and externally rotated. Unable to assess neurologic function. +EHL/FHL,+ PT/DP pulses. Supple compartments. LEFT lower extremity: no deformity. no crepitus. + PT/DP pulses. Supple compartments. Laboratory Laboratory Tests Test 09/07/17 23:20 09/08/17 01:05 09/08/17 11:40 White Blood Count 12.4 7.6 Red Blood Count 3.59 2.50 Hemoglobin 11.4 8.4 Hematocrit 33.7 23.4 Mean Corpuscular Volume 93.9 93.5 Mean Corpuscular Hemoglobin 31.7 33.5 Mean Corpuscular Hemoglobin Concent 33.8 35.8 Red Cell Distribution Width 13.0 12.9 Platelet Count 334 269 Mean Platelet Volume 9.9 9.4 Blood Urea Nitrogen 35 Creatinine 1.39 Random Glucose 171 Calcium Level 8.8 Sodium Level 135 Potassium Level 4.3 Chloride Level 101 Carbon Dioxide Level 25.7 Anion Gap 8 Estimat Glomerular Filtration Rate 36 Prothrombin Time 12.0 Prothromb Time International Ratio 1.2 Activated Partial Thromboplast Time 37.4 Urine Color YELLOW Urine Turbidity HAZY Urine pH 5.5 Urine Specific [place] 1.020 Urine Protein 30 Urine Glucose (UA) NEG Urine Ketones NEG Urine Occult Blood MOD Urine Nitrite NEG Urine Bilirubin NEG Urine Urobilinogen 2.0 Urine Leukocyte Esterase LARGE Urine RBC 52 Urine WBC 21 Urine Squamous Epithelial Cells 4 Urine Amorphous Sediment RARE Urine Hyaline Casts 5 Urine Mucus FEW Urine Yeast with Hyphae MOD Urine Yeast (Budding) MANY Microscopic Urinalysis Comment CULTURE INDICATED Neutrophils (%) (Auto) 82.8 Lymphocytes (%) (Auto) 6.8 Monocytes (%) (Auto) 7.2 Eosinophils (%) (Auto) 2.7 Basophils (%) (Auto) 0.5 Neutrophils # (Auto) 6.3 Lymphocytes # (Auto) 0.5 Monocytes # (Auto) 0.6 Eosinophils # (Auto) 0.2 Basophils # (Auto) 0.0 CBC Comment DIFF FINAL Differential Comment Date/Time Source Procedure Growth Status 09/08/17 01:05 Urine Random Urine Urine Culture Pending Received Result Diagram: 09/08/17 1140 09/07/17 2320 Imaging Last [address] 09/08/17 0015 Signed Impressions: Service Date/Time: Friday, September 08, 2017 00:25 - CONCLUSION: 1. No acute intracranial abnormality. 2. Atrophy and chronic small vessel ischemic change. Jose Rico Jr., MD Cervical Spine CT 09/08/17 0015 Signed Impressions: Service Date/Time: Friday, September 08, 2017 00:25 - CONCLUSION: 1. No fracture or dislocation. 2. C6-C7 disc protrusion. Jose Rico Jr., MD Hip and Pelvis X-Ray 09/08/17 0000 Signed Impressions: Service Date/Time: Friday, September 08, 2017 13:39 - CONCLUSION: Right total hip arthroplasty as above. Josh Muniz MD Chest X-Ray 09/07/17 2333 Signed Impressions: Service Date/Time: Thursday, September 07, 2017 23:44 - CONCLUSION: No acute disease. Jose Rico Jr., MD Hip and Pelvis X-Ray 09/07/17 0000 Signed Impressions: Service Date/Time: Thursday, September 07, 2017 23:20 - CONCLUSION: Acute fracture involving the right lesser trochanter in this patient with a right hip implant. Jose Rico Jr., MD Assessment & Plan Assessment and Plan 87-year-old female 2 weeks status post right guzman-bipolar arthroplasty by Dr. Graf 2 weeks ago sustained a fall at her nursing rehab facility complaining of right hip pain and inability bear weight. Patient has history of dementia. I discussed x-rays and treatment plan with her power of privacy attorney and parents were present. I recommend open reduction fixation of the fracture as well as revision with a bipolar stem with diaphyseal fixation. I discussed my treatment plans as well as risks, benefits and alternatives of surgical Intervention versus nonoperative treatment. In this case, the risks of operative intervention involves bleeding, infection, nonunion, malunion, risks of damage to neurovascular structures, the risk of needing further surgery, posttraumatic arthritis and the risks involved with complication from anesthesia. We will proceed with the above procedure. The patient accepts these risks; understands and agrees with my recommendations. I also discussed my proposed postoperative care and follow-up plan. All questions were answered. Plan for OR Jonathan Barillas Jr., MD Sep 08, 2017 19:06
[2017-09-08] MEDS ORDERED: PROMETHAZINE HCL 25 MG TAB PO PRN (19:15)
[2017-09-08] MEDS ORDERED: Post-op Orders (for Pharmacy) XX ONE (19:15)
[2017-09-08] MEDS ORDERED: PROMETHAZINE HCL 25 MG SUPP RECTAL PRN (19:15)
[2017-09-08] MEDS ORDERED: ZOLPIDEM TARTRATE 5 MG TAB PO PRN (19:15)
--- NOTE | 2017-09-08 19:16 | PD.OP ---
cc: Jonathan Barillas Jr., MD Operative Report Date of Surgery: Sep 08, 2017 Preoperative Diagnosis: Periprosthetic right femur fracture Postoperative Diagnosis: Same Procedure: Open reduction internal fixation with cerclage cable and revision bipolar stem to long stem with diaphyseal fixation Anesthesia: General Surgeon: Jonathan Barillas Airport Ramp Agent(s): MARA Metz The surgical procedure was assisted by my Advanced Registered Nurse Practitioner. My WINDOWS PHONE DEVELOPER presence was necessary throughout this case for the manipulation and positioning of the surgical extremity. My WINDOWS PHONE DEVELOPER was assisting me throughout the duration of this procedure. The skill set of an Advance Registered Nurse Practitioner was medically necessary to complete this procedure. During the surgical case, the rn neurosurgical was working at the back table and the Advance Registered Nurse Practitioner was directly assisting me. Resident Surgeon: None Operation and Findings: EBL 400cc DETAILS OF PROCEDURE This patient was brought into the operating room and placed on the OR table. The patient was given anesthesia. The patient received IV antibiotics. The patient was then placed in lateral decubitus position. The RIGHt hip and leg were prepped with alcohol, followed by Hibiclens and draped in a usual sterile fashion. Clean air was used for this procedure. Time out procedure was performed. The procedure began with a 5 inch incision over the posterolateral hip. The subcutaneous tissue was dissected with the Bovie. The iliotibial band were split in line with fibers. The Charnley retractor was placed. The previous sutures were removed. There is no sign of infection. Soft tissue appears healthy. The piriformis and external rotators were released from the femur and tagged with a #1 Vicryl suture. The capsule is now incised and tagged with #1 Vicryl. The hip was dislocated and the head was removed. The stem was loose and removed by hand. Soft tissue was now protected. There was a fracture of the medial calcar extending below the lesser trochanter. The hip skid was placed underneath the femoral neck. Because of lack of proximal bony envelope and AML stem with distal fixation was selected. The canal was sequentially reamed then broached up to a size 15 stem. The stem was now impacted into the proximal femur. Care was taken to keep appropriate anteversion. Under direct visualization, the fracture was reduced and cerclage with 2 cerclage cables. The head was impacted into place. The hip was again reduced. The hip was found to have good range of motion and good stability. Leg lengths were clinically equal. The wound was thoroughly irrigated. The capsule, piriformis and iliotibial band were closed with #1 Vicryl. Subcutaneous tissue was closed with 3-0 Vicryl. The skin was closed with blanche. A sterile dressing was applied with Primapore. The patient was placed into a knee immobilizer. The patient was awakened and transferred to the recovery room in stable condition. Needle and sponge counts were correct. IMPLANTS USED [employer] AML stem POSTP-OP PLAN OF ACTIVITY Antibiotics: Ancef Antiocoagulation: Lovenox while hospitalized (xeralto at discharge) Weight bearing status: 50% WB Dressing: per order Future procedure planned: none Dispo: Jonathan Kyle Jr., MD Sep 08, 2017 19:16
[2017-09-08 19:52] VITALS: BP 123/60; PULSE 92; RESP 17; TEMP 98.4; O2SAT 92
[2017-09-08] MEDS: SODIUM CHLORIDE 0.9% FLUSH 10 ML FLUSH IV FLUSH SCH (20:35)
[2017-09-08] MEDS: LORazepam 0.5 MG TAB PO PRN (20:35)
[2017-09-08] MEDS: DOCUSATE SODIUM 50 MG/SENNA 8.6 MG TAB PO SCH (20:35)
[2017-09-09] MEDS: ACETAMINOPHEN/HYDROcodone 325 MG/5 MG TAB PO PRN ×3 (00:34→21:16)
[2017-09-09 00:54] VITALS: BP 132/60; PULSE 92; RESP 18; TEMP 97.2; O2SAT 93
[2017-09-09] MEDS: ENOXAPARIN SODIUM 30 MG/0.3 ML SYRINGE SQ SCH ×2 (01:30→14:05)
[2017-09-09] MEDS: LORazepam 0.5 MG TAB PO PRN ×3 (02:38→21:16)
[2017-09-09 04:00] VITALS: BP 128/71; PULSE 109; RESP 18; TEMP 97.8; O2SAT 94
[2017-09-09] MEDS: cefTRIAXone INJ 1,000 MG in SODIUM CHLORIDE 0.9% INJ 100 ML IV SCH (04:00)
[2017-09-09] MEDS: SODIUM CHLOR 0.9% 1000 ML INJ 1,000 ML IV SCH ×2 (04:18→16:40)
[2017-09-09 06:26] LABS: AUTOMATED NEUTROPHIL # 13.7 TH/MM3 (1.8-7.7); BASOPHIL # 0.1 TH/MM3 (0-0.2); BASOPHIL % 0.3 % (0.0-2.0); EOSINOPHIL # 0.1 TH/MM3 (0-0.4); EOSINOPHIL % 0.6 % (0.0-4.0); HEMATOCRIT 26.2 % (35.0-46.0); HEMOGLOBIN 8.7 GM/DL (11.6-15.3); LYMPHOCYTE # 0.5 TH/MM3 (1.0-4.8); MEAN CELL VOLUME 91.6 FL (80.0-100.0); MEAN CORPUSCULAR HEMOGLOBIN 30.4 PG (27.0-34.0); MEAN CORPUSCULAR HGB CONC 33.2 % (32.0-36.0); MEAN PLATELET VOLUME 9.5 FL (7.0-11.0); MONO % 5.7 % (0.0-8.0); MONOCYTE # 0.9 TH/MM3 (0-0.9); NEUT % 90.4 % (16.0-70.0); PLATELET COUNT 238 TH/MM3 (150-450); RED BLOOD COUNT 2.87 MIL/MM3 (4.00-5.30); RED CELL DISTRIBUTION WIDTH 15.2 % (11.6-17.2); WHITE BLOOD COUNT 15.1 TH/MM3 (4.0-11.0)
[2017-09-09 06:57] LABS: ALBUMIN 1.9 GM/DL (3.4-5.0); BICARBONATE 21.7 MEQ/L (21.0-32.0); CALCIUM 7.3 MG/DL (8.5-10.1); CALCIUM-PROTEIN CORRECTED 8.7 MG/DL (8.5-10.1); CREATININE 1.14 MG/DL (0.50-1.00); TOTAL BILIRUBIN ADULT 0.5 MG/DL (0.2-1.0); TOTAL PROTEIN 4.6 GM/DL (6.4-8.2)
[2017-09-09 08:00] VITALS: BP 145/63; PULSE 111; RESP 18; TEMP 98.3; O2SAT 97
[2017-09-09] MEDS: INSULIN ASPART SUPPLEMENTAL SCALE SQ SCH ×4 (08:00→21:00)
[2017-09-09] MEDS: SODIUM CHLORIDE 0.9% FLUSH 10 ML FLUSH IV FLUSH SCH ×2 (08:17→21:00)
[2017-09-09] MEDS: DOCUSATE SODIUM 50 MG/SENNA 8.6 MG TAB PO SCH ×2 (08:18→21:16)
[2017-09-09] MEDS: ESCITALOPRAM OXALATE 10 MG TAB PO SCH (08:19)
[2017-09-09] MEDS: MEMANTINE HCL 10 MG TAB PO SCH (08:19)
[2017-09-09] MEDS ORDERED: XARE10TA PO (09:33)
[2017-09-09] MEDS ORDERED: PERC5TAB12 PO (09:33)
[2017-09-09 12:00] VITALS: BP 148/67; PULSE 97; RESP 16; TEMP 98.4; O2SAT 94
--- NOTE | 2017-09-09 14:13 | HHI.PR ---
Subjective Remarks Pt tells me she wants to sleep. Denies pulling on the IVs. Denies any pain Objective Vitals Vital Signs Date Time Temp Pulse Resp B/P (MAP) Pulse Ox O2 Delivery O2 Flow Rate FiO2 09/09/17 09:57 Room Air 09/09/17 08:00 98.3 111 18 145/63 (90) 97 09/09/17 04:00 97.8 109 18 128/71 (90) 94 09/09/17 00:54 97.2 92 18 132/60 (84) 93 09/08/17 20:30 Nasal Cannula 2.00 09/08/17 19:52 98.4 92 17 123/60 (81) 92 09/08/17 18:46 Nasal Cannula 2.00 09/08/17 16:00 97.2 96 19 95/50 (65) 100 09/08/17 14:40 Nasal Cannula 2.00 09/08/17 14:30 90 19 104/56 (72) 100 Nasal Cannula 4 I/O 09/08/17 09/08/17 09/08/17 09/09/17 09/09/17 09/09/17 06:59 14:59 22:59 06:59 14:59 22:59 Intake Total 2500 ml 360 ml Output Total 950 ml 450 ml Balance 1550 ml -90 ml Intake Oral 360 ml IV Total 2000 ml Packed Cells 400 ml Blood Product IV Normal Saline Flush 100 ml Output Urine Total 550 ml 450 ml Estimated Blood Loss 400 ml # Bowel Movements 0 Result Diagram: 09/09/17 0528 09/09/17 0528 Imaging Last Impressions Head CT 09/08/1714 Signed Impressions: Service Date/Time: Friday, September 08, 2017 00:25 - CONCLUSION: 1. No acute intracranial abnormality. 2. Atrophy and chronic small vessel ischemic change. Jose Rico Jr., MD Cervical Spine CT 09/08/17 0015 Signed Impressions: Service Date/Time: Friday, September 08, 2017 00:25 - CONCLUSION: 1. No fracture or dislocation. 2. C6-C7 disc protrusion. Jose Rico Jr., MD Hip and Pelvis X-Ray 09/08/17 0000 Signed Impressions: Service Date/Time: Friday, September 08, 2017 13:39 - CONCLUSION: Right total hip arthroplasty as above. Josh Muniz MD Chest X-Ray 09/07/17 9844 Signed Impressions: Service Date/Time: Thursday, September 07, 2017 23:44 - CONCLUSION: No acute disease. Jose Rico Jr., MD A/P Problem List: (1) Fall ICD Code: W19.XXXA - Unspecified fall, initial encounter (2) Hip fracture, right ICD Code: S72.001A - Fracture of unspecified part of neck of right femur, initial encounter for closed fracture (3) Renal insufficiency ICD Code: N28.9 - Disorder of kidney and ureter, unspecified (4) UTI (urinary tract infection) ICD Code: N39.0 - Urinary tract infection, site not specified (5) DM (diabetes mellitus) ICD Code: E11.9 - Type 2 diabetes mellitus without complications Assessment and Plan 1. Fall: s/p mechanical fall, no reported LOC, unclear if head trauma, CT Head /C-Spine w/ no acute findings/fracture 2. Right Hip Fx: secondary to above, Hip X-ray w/ acute fracture involving right lesser trochanter with previous right hip implant. Ortho following, s/ Open reduction internal fixation with cerclage cable and revision bipolar stem to long stem with diaphyseal fixation POD 1. analgesics/antiemetics/pain managment/ abx/dvt proph per ortho 3. Renal Insufficiency: Acute on Chronic. Creatinine 1.39 --> 1.14, previously 1.12 on 08/16/2016. IVF for hydration, repeat labs in a.m. 4. UTI: U/a positive for UTI, cultures growing gram + cory w years. Will treat w diflucan, d/c Rocephin 5. DM: Sliding scale w/ Accu-Cheks. Discharge Planning she is POD1, awaiting final recs from ortho. continue current management Repeat Cr in AM Leukocytosis noted, pt asymptomatic. Repeat CBC in AM. repeat U/A Anya Allison MD Sep 09, 2017 14:13
--- NOTE | 2017-09-09 14:18 | PD.ORT.PN ---
Subjective Subjective Remarks Doing well. Pain is controlled. No chest pain or shortness of breath. Objective Vitals Vital Signs Date Time Temp Pulse Resp B/P (MAP) Pulse Ox O2 Delivery O2 Flow Rate FiO2 09/09/17 09:57 Room Air 09/09/17 08:00 98.3 111 18 145/63 (90) 97 09/09/17 04:00 97.8 109 18 128/71 (90) 94 09/09/17 00:54 97.2 92 18 132/60 (84) 93 09/08/17 20:30 Nasal Cannula 2.00 09/08/17 19:52 98.4 92 17 123/60 (81) 92 09/08/17 18:46 Nasal Cannula 2.00 09/08/17 16:00 97.2 96 19 95/50 (65) 100 09/08/17 14:40 Nasal Cannula 2.00 09/08/17 14:30 90 19 104/56 (72) 100 Nasal Cannula 4 I/O 09/08/17 09/08/17 09/08/17 09/09/17 09/09/17 09/09/17 07:00 15:00 23:00 07:00 15:00 23:00 Intake Total 2500 ml 360 ml Output Total 950 ml 450 ml Balance 1550 ml -90 ml Intake Oral 360 ml IV Total 2000 ml Packed Cells 400 ml Blood Product IV Normal Saline Flush 100 ml Output Urine Total 550 ml 450 ml Estimated Blood Loss 400 ml # Bowel Movements 0 Result Diagram: 09/09/1752709/09/17 05 Objective Remarks No acute distress per. Pulmonary: Normal respiratory effort. Right lower extremity: CKS, Neurovascularly intact, +EHL/FHL, dressing clean, dry and intact. + PT/DP pulses. Supple compartments. Negative Homans sign. Left lower extremity: neurovascularly intact Assessment & Plan Assessment and Plan Open reduction internal fixation with cerclage cable and revision bipolar stem to long stem with diaphyseal fixation POD # 1 ancef lovenox, xarelto at dc 50% WB, posterior hip precautions, CKS for 8wks 11/08/17 dc to SNF Jonathan Barillas Jr., MD Sep 09, 2017 14:18
[2017-09-09 16:19] LABS: AMORPHOUS SEDIMENT, URINE RARE; BACTERIA, URINE FEW /hpf; BILIRUBIN, URINE NEG (NEG); BLOOD, URINE SMALL (NEG); GLUCOSE,URINE NEG (NEG); KETONE, URINE 40 mg/dL (NEG); MUCUS URINE FEW /lpf (OCC); NITRITE,URINE NEG (NEG); PH, URINE 5.5 (5.0-8.5); SQUAMOUS EPITHELIAL CELL URINE 2 /hpf (0-5); URINE COLOR YELLOW (YELLW/STRAW); URINE LEUKOCYTE ESTERASE LARGE (NEG)
[2017-09-09] MEDS: FLUCONAZOLE 100 MG TAB PO SCH (17:30)
[2017-09-09 19:08] VITALS: BP 150/67; PULSE 114; RESP 16; TEMP 97.6; O2SAT 99
[2017-09-09] MEDS: MULTIVITAMINS/MINERALS THERAPEUTIC TAB PO SCH (21:16)
[2017-09-09 23:53] VITALS: BP 143/62; PULSE 93; RESP 19; TEMP 98.4; O2SAT 93
[2017-09-10] MEDS: ENOXAPARIN SODIUM 30 MG/0.3 ML SYRINGE SQ SCH ×2 (01:52→12:40)
[2017-09-10] MEDS: SODIUM CHLOR 0.9% 1000 ML INJ 1,000 ML IV SCH ×2 (01:52→12:40)
[2017-09-10 04:18] VITALS: BP 134/60; PULSE 87; RESP 17; TEMP 98.4; O2SAT 95
[2017-09-10] MEDS: CEFUROXIME AXETIL 500 MG TAB PO SCH ×2 (05:01→08:28)
[2017-09-10 06:37] LABS: BICARBONATE 24.1 MEQ/L (21.0-32.0); CALCIUM 7.8 MG/DL (8.5-10.1); CREATININE 0.97 MG/DL (0.50-1.00)
[2017-09-10 06:52] LABS: BASOPHIL # 0.1 TH/MM3 (0-0.2); BASOPHIL % 0.9 % (0.0-2.0); EOSINOPHIL # 0.2 TH/MM3 (0-0.4); EOSINOPHIL % 2.1 % (0.0-4.0); HEMATOCRIT 23.9 % (35.0-46.0); LYMPH % 5.9 % (9.0-44.0); LYMPHOCYTE # 0.7 TH/MM3 (1.0-4.8); MEAN CELL VOLUME 90.5 FL (80.0-100.0); MEAN CORPUSCULAR HEMOGLOBIN 30.3 PG (27.0-34.0); MEAN CORPUSCULAR HGB CONC 33.5 % (32.0-36.0); MEAN PLATELET VOLUME 10.8 FL (7.0-11.0); MONO % 10.3 % (0.0-8.0); MONOCYTE # 1.1 TH/MM3 (0-0.9); NEUT % 80.8 % (16.0-70.0); PLATELET COUNT 231 TH/MM3 (150-450); RED BLOOD COUNT 2.64 MIL/MM3 (4.00-5.30); WHITE BLOOD COUNT 11.1 TH/MM3 (4.0-11.0)
[2017-09-10 08:00] VITALS: BP 175/70; PULSE 90; RESP 18; TEMP 97.5; O2SAT 94
[2017-09-10] MEDS: MEMANTINE HCL 10 MG TAB PO SCH (08:29)
[2017-09-10] MEDS: FLUCONAZOLE 100 MG TAB PO SCH (08:29)
[2017-09-10] MEDS: ESCITALOPRAM OXALATE 10 MG TAB PO SCH (08:30)
[2017-09-10] MEDS: ACETAMINOPHEN/HYDROcodone 325 MG/5 MG TAB PO PRN ×3 (08:31→17:39)
[2017-09-10] MEDS: MULTIVITAMINS/MINERALS THERAPEUTIC TAB PO SCH (08:31)
[2017-09-10] MEDS: INSULIN ASPART SUPPLEMENTAL SCALE SQ SCH ×3 (08:37→17:00)
[2017-09-10] MEDS: SODIUM CHLORIDE 0.9% FLUSH 10 ML FLUSH IV FLUSH SCH (08:37)
[2017-09-10] MEDS: DOCUSATE SODIUM 50 MG/SENNA 8.6 MG TAB PO SCH (08:38)
[2017-09-10 12:00] VITALS: BP 139/79; PULSE 89; RESP 18; TEMP 97.9; O2SAT 94
--- NOTE | 2017-09-10 13:42 | PD.ORT.PN ---
Subjective Subjective Remarks Doing well. Pain is controlled Objective Vitals Vital Signs Date Time Temp Pulse Resp B/P (MAP) Pulse Ox O2 Delivery O2 Flow Rate FiO2 09/10/17 08:00 97.5 90 18 175/70 (105) 94 09/10/17 04:18 98.4 87 17 134/60 (84) 95 09/09/17 23:53 98.4 93 19 143/62 (89) 93 09/09/17 22:45 Room Air 09/09/17 21:52 18 09/09/17 19:08 97.6 114 16 150/67 (94) 99 I/O 09/09/17 09/09/17 09/09/17 09/10/17 09/10/17 09/10/17 07:00 15:00 23:00 07:00 15:00 23:00 Intake Total 360 ml 580 ml Output Total 450 ml 450 ml Balance -90 ml 130 ml Intake Oral 360 ml 580 ml Output Urine Total 450 ml 450 ml # Bowel Movements 0 Result Diagram: 09/10/17 0539 09/10/17 0539 Objective Remarks No acute distress per. Pulmonary: Normal respiratory effort. Right lower extremity: CKS, Neurovascularly intact, +EHL/FHL, dressing clean, dry and intact. + PT/DP pulses. Supple compartments. Negative Homans sign. Left lower extremity: neurovascularly intact Assessment & Plan Assessment and Plan Open reduction internal fixation with cerclage cable and revision bipolar stem to long stem with diaphyseal fixation POD # 2 doing well. lovenox, xarelto at dc 50% WB, posterior hip precautions, CKS for 8wks 11/08/17 dc to SNF Jonathan Barillas Jr., MD Sep 10, 2017 13:42
[2017-09-10] MEDS ORDERED: DIFL100T PO (14:08)
--- NOTE | 2017-09-10 14:09 | HHI.DS ---
Discharge Summary Admission Date Sep 08, 2017 at 00:54 Discharge Date: Sep 10, 2017 Admitting Diagnosis Right hip fracture (1) Fall ICD Code: W19.XXXA - Unspecified fall, initial encounter (2) Hip fracture, right ICD Code: S72.001A - Fracture of unspecified part of neck of right femur, initial encounter for closed fracture (3) Renal insufficiency ICD Code: N28.9 - Disorder of kidney and ureter, unspecified (4) UTI (urinary tract infection) ICD Code: N39.0 - Urinary tract infection, site not specified (5) DM (diabetes mellitus) ICD Code: E11.9 - Type 2 diabetes mellitus without complications Procedures Open reduction internal fixation with cerclage cable and revision bipolar stem to long stem with diaphyseal fixation. Brief History - From Admission HPI from the admitting physician This is an 87-year-old female with a PMH of HTN, Anxiety, Depression, Anemia, Dementia, Recurrent UTI and DM who was brought to the ER by EMS from [facility] for complaints of right hip pain after a fall. Per report, patient was trying to get out of bed without using assistive device and had subsequent fall. Pt poor historian, unable to obtain much history. Does note right hip pain, unable to quantify, worse w/ movement. No other complaints. On arrival, BP 143/75, HR 79, O2 sat 98% on RA, Afebrile. WBC 12.4. Creatinine 1.39, previously 1.12 on 08/16/2016. INR 1.2. UA positive for UTI. CT Head with no acute findings. CT C-spine with no fracture or dislocation. CXR with no acute findings. Hip X-ray with acute fracture of right lesser trochanter. CBC/BMP: 09/10/17 0539 09/10/17 0539 Significant Findings Laboratory Tests Test 09/07/17 23:20 09/08/17 01:05 09/08/17 11:40 09/09/17 05:28 White Blood Count 12.4 TH/MM3 (4.0-11.0) 15.1 TH/MM3 (4.0-11.0) Red Blood Count 3.59 MIL/MM3 (4.00-5.30) 2.50 MIL/MM3 (4.00-5.30) 2.87 MIL/MM3 (4.00-5.30) Hemoglobin 11.4 GM/DL (11.6-15.3) 8.4 GM/DL (11.6-15.3) 8.7 GM/DL (11.6-15.3) Hematocrit 33.7 % (35.0-46.0) 23.4 % (35.0-46.0) 26.2 % (35.0-46.0) Blood Urea Nitrogen 35 MG/DL (7-18) 26 MG/DL (7-18) Creatinine 1.39 MG/DL (0.50-1.00) 1.14 MG/DL (0.50-1.00) Random Glucose 171 MG/DL (74-106) 152 MG/DL (74-106) Sodium Level 135 MEQ/L (136-145) Estimat Glomerular Filtration Rate 36 ML/MIN (>89) 45 ML/MIN (>89) Prothrombin Time 12.0 SEC (9.8-11.6) Activated Partial Thromboplast Time 37.4 SEC (24.3-30.1) Urine Turbidity HAZY (CLEAR) Urine Protein 30 mg/dL (NEG-TRACE) Urine Occult Blood MOD (NEG) Urine Leukocyte Esterase LARGE (NEG) Urine RBC 52 /hpf (0-3) Urine WBC 21 /hpf (0-5) Urine Mucus FEW /lpf (OCC) Urine Yeast with Hyphae MOD (NONE) Urine Yeast (Budding) MANY (NONE) Neutrophils (%) (Auto) 82.8 % (16.0-70.0) 90.4 % (16.0-70.0) Lymphocytes (%) (Auto) 6.8 % (9.0-44.0) 3.0 % (9.0-44.0) Lymphocytes # (Auto) 0.5 TH/MM3 (1.0-4.8) 0.5 TH/MM3 (1.0-4.8) Neutrophils # (Auto) 13.7 TH/MM3 (1.8-7.7) Total Protein 4.6 GM/DL (6.4-8.2) Albumin 1.9 GM/DL (3.4-5.0) Calcium Level 7.3 MG/DL (8.5-10.1) Chloride Level 108 MEQ/L (98-107) Test 09/09/17 16:04 09/10/17 05:39 Urine Turbidity HAZY (CLEAR) Urine Ketones 40 mg/dL (NEG) Urine Occult Blood SMALL (NEG) Urine Leukocyte Esterase LARGE (NEG) Urine RBC 20 /hpf (0-3) Urine WBC 51 /hpf (0-5) Urine Bacteria FEW /hpf (NONE) Urine Mucus FEW /lpf (OCC) Urine Yeast (Budding) MANY (NONE) White Blood Count 11.1 TH/MM3 (4.0-11.0) Red Blood Count 2.64 MIL/MM3 (4.00-5.30) Hemoglobin 8.0 GM/DL (11.6-15.3) Hematocrit 23.9 % (35.0-46.0) Neutrophils (%) (Auto) 80.8 % (16.0-70.0) Lymphocytes (%) (Auto) 5.9 % (9.0-44.0) Monocytes (%) (Auto) 10.3 % (0.0-8.0) Neutrophils # (Auto) 9.0 TH/MM3 (1.8-7.7) Lymphocytes # (Auto) 0.7 TH/MM3 (1.0-4.8) Monocytes # (Auto) 1.1 TH/MM3 (0-0.9) Blood Urea Nitrogen 23 MG/DL (7-18) Calcium Level 7.8 MG/DL (8.5-10.1) Chloride Level 110 MEQ/L (98-107) Estimat Glomerular Filtration Rate 54 ML/MIN (>89) Imaging Last Impressions Head CT 09/08/1714 Signed Impressions: Service Date/Time: Friday, September 08, 2017 00:25 - CONCLUSION: 1. No acute intracranial abnormality. 2. Atrophy and chronic small vessel ischemic change. Jose iRco Jr., MD Cervical Spine CT 09/08/175 Signed Impressions: Service Date/Time: Friday, September 08, 2017 00:25 - CONCLUSION: 1. No fracture or dislocation. 2. C6-C7 disc protrusion. Jose Rico Jr., MD Hip and Pelvis X-Ray 09/08/17 0000 Signed Impressions: Service Date/Time: Friday, September 08, 2017 13:39 - CONCLUSION: Right total hip arthroplasty as above. Josh Muniz MD Chest X-Ray 09/07/17 [id number] Signed Impressions: Service Date/Time: Thursday, September 07, 2017 23:44 - CONCLUSION: No acute disease. Jose Rico Jr., MD PE at Discharge GENERAL: No acute distress CARDIOVASCULAR: Normal rate and regular rhythm without murmurs, gallops, or rubs. RESPIRATORY: Good respiratory efforts. Breath sounds equal and clear to auscultation bilaterally. GASTROINTESTINAL: Abdomen soft, non-tender, non-distended. Normal active bowel sounds MUSCULOSKELETAL: Right lower extremity dressing appear intact. Neurovascularly intact distally. NEURO: Alert & Oriented x4 to person, place, time, situation. Moves all ext x4 PSYCH: Appropriate mood and affect. Pt update on day of discharge Patient reports she is feeling okay. Pain is controlled. Hospital Course 87-year-old female admitted and treated for the followin. Fall: s/p mechanical fall, no reported LOC, unclear if head trauma, CT Head /C-Spine w/ no acute findings/fracture 2. Right Hip Fx: secondary to above, Hip X-ray w/ acute fracture involving right lesser trochanter with previous right hip implant. Ortho following, s/p Open reduction internal fixation with cerclage cable and revision bipolar stem to long stem with diaphyseal fixation. analgesics/antiemetics/pain managment/ abx/dvt proph per ortho 3. Renal Insufficiency: Acute on Chronic. Creatinine 1.39 --> 1.14, previously 1.12 on 08/16/2016. Resolved with IV fluid. 4. UTI: U/a positive for UTI, culture grew Germaine. Treat with Diflucan. 5. DM: Sliding scale w/ Accu-Cheks. Pt Condition on Discharge: Good Discharge Disposition: Discharge to SNF Discharge Time: > 30 minutes Discharge Instructions DIET: Follow Instructions for: Heart Healthy Diet Activities you can perform: Regular-No Restrictions Follow up Referrals: Orthopedics - 2 Weeks @ [facility] with Yosef Simms MD New Medications: Oxycodone-Acetaminophen (Percocet) 5-325 mg Tab 1 TAB PO Q4H PRN for PAIN, #60 TAB 0 Refills Rivaroxaban (Xarelto) 10 Mg Tab 10 MG PO DAILY for Blood Clot Prevention, #30 TAB 0 Refills Fluconazole (Diflucan) 100 Mg Tab 150 MG PO DAILY, #14 TAB Continued Medications: Aspirin (Aspirin) 325 Mg Tab 325 MG PO DAILY, #30 TAB 0 Refills Cyanocobalamin (B-12) 100 Mcg Tab 250 MCG PO DAILY for Nutritional Supplement, #1 BOTTLE 0 Refills Docusate Sodium (Dulcolax Stool Softener) 100 Mg Cap 100 MG PO BID PRN for CONSTIPATION, #60 CAP 0 Refills Escitalopram (Escitalopram) 5 Mg Tab 5 MG PO DAILY, #30 TAB 0 Refills Ferrous Sulfate (Ferrous Sulfate) 325 Mg (65 Mg Iron) Tablet 325 MG PO DAILY for Nutritional Supplement, #30 TAB 0 Refills Glimepiride (Glimepiride) 1 Mg Tab 1 MG PO DAILY for Blood Sugar Management, #30 TAB 0 Refills Take with breakfast or first main meal Lisinopril (Lisinopril) 20 Mg Tab 20 MG PO DAILY, #30 TAB 0 Refills Lorazepam (Lorazepam) 0.5 Mg Tab 0.5 MG PO Q6H PRN for ANXIETY, TAB 0 Refills Memantine (Namenda) 10 Mg Tab 10 MG PO DAILY for Alzheimer Disease, #30 TAB 0 Refills Menthol Topical (Eucerin Skin Calming Itch Topical) 0.1 % Lot 1 APPLIC TOPICAL DIRECTED PRN for ITCHING AND/OR RASH, #1 BOTTLE 0 Refills Polyethylene Glycol 3350 Powder (Polyethylene Glycol 3350 Powder) 17 Gram Pow 17 GM PO DAILY for Constipation, #1 BOTTLE 0 Refills Discontinued Medications: Ciprofloxacin (Cipro) 250 Mg Tab 250 MG PO BID for Infection, TAB 0 Refills Oxycodone-Acetaminophen (Percocet) 5-325 mg Tab 1 TAB PO Q4H PRN for PAIN, TAB 0 Refills Za Kwok MD Sep 10, 2017 14:09
[2017-09-10 16:00] VITALS: BP 125/58; PULSE 84; RESP 18; TEMP 98.1; O2SAT 96
== END 2017-09-10 19:37 | DRG 467 ==
LOC: NEPD 22:34 → NEDA 09-08 00:54 → N06B 09-08 14:37 → N06A 09-08 18:48
PROVIDERS: ADMIT Family Medicine; ATTEND Family Medicine
PROC: 0SPR0JZ Removal of Synthetic Substitute from Right Hip Joint, Femoral Surface, Open Approach (ICD-10-PCS; 2017-09-08)
PROC: 0QS60ZZ Reposition Right Upper Femur, Open Approach (ICD-10-PCS; 2017-09-08)
PROC: 0SRR0JZ Replacement of Right Hip Joint, Femoral Surface with Synthetic Substitute, Open Approach (ICD-10-PCS; principal; 2017-09-08 09:39)
DX: S72.001A Fracture of unspecified part of neck of right femur, initial encounter for closed fracture (principal); M97.01XA Periprosthetic fracture around internal prosthetic right hip joint, initial encounter; E11.22 Type 2 diabetes mellitus with diabetic chronic kidney disease; G30.9 Alzheimer's disease, unspecified; B37.49 Other urogenital candidiasis; F02.80 Dementia in other diseases classified elsewhere, unspecified severity, without behavioral disturbance, psychotic disturbance, mood disturbance, and anxiety; I12.9 Hypertensive chronic kidney disease with stage 1 through stage 4 chronic kidney disease, or unspecified chronic kidney disease; K21.9 Gastro-esophageal reflux disease without esophagitis; N18.9 Chronic kidney disease, unspecified; F41.9 Anxiety disorder, unspecified; F32.9 Major depressive disorder, single episode, unspecified; D50.9 Iron deficiency anemia, unspecified; S80.212A Abrasion, left knee, initial encounter; W06.XXXA Fall from bed, initial encounter; Y92.193 Bedroom in other specified residential institution as the place of occurrence of the external cause; Z79.84 Long term (current) use of oral hypoglycemic drugs; Z96.641 Presence of right artificial hip joint
CPT/HCPCS: 36430; 70450; 71045; 72125; 73501; 73502; 80048; 80053; 81001; 82948; 85025; 85027; 85610; 85730; 86850; 86900; 86901; 86920; 87086; 93005; 96374; 96375; 99285; C1713; C1776; J0131; J0330; J0690; J0696; J1580; J1650; J1815; J2270; J2370; J2405; J3010; J7030; P9016

== ENCOUNTER 2017-09-24 11:28 | Emergency (ER) | payer MEDICARE, OTHER ==
[~2017-09-24 11:28] MED LIST changes: +ASPI-183 PO; +B-12100T PO; -CITRSOL3; +DIFL100T PO; -ENEMENE5; +ESCI5TAB PO; +FERR325T18 PO; +LISI-515 PO; +LORA0.5T PO; -NAME5TAB2 PO; +PERC5TAB12 PO; +POLY17S PO; +XARE10TA PO; -[UNRECOGNIZED DRUG - CODE] PO; +[UNRECOGNIZED DRUG - CODE] TOPICAL
[2017-09-24 11:41] VITALS: BP 142/57; PULSE 82; TEMP 98.4; O2SAT 99
--- NOTE | 2017-09-24 11:51 | PD ---
HPI Chief Complaint: Diabetic Time Seen by Provider: 11:42 Travel History International Travel<30 days: No Contact w/Intl Traveler<30days: No Traveled to known affect area: No History of Present Illness HPI 87-year-old female with history of dementia, diabetes, CAD, status post hip replacement by Dr. Florez last month with subsequent infection of the right hip , presents today from [facility] for evaluation of hypoglycemia. The patient offers no history. She can tell me her name and that she is in the hospital but she tells me she feels fine. Per report from [facility] and the rehab facility, patient has been hypoglycemic over the last 2-3 days. Yesterday her blood glucose is 46. Per the MAR, patient still received her glimepiride up until yesterday. She did not receive it today. There are no other symptoms to report at this time. PFSH Past Medical History Anxiety: Yes Depression: Yes Cancer: No Cardiovascular Problems: Yes Diabetes: Yes Endocrine: Yes Genitourinary: No Immune Disorder: No Musculoskeletal: No Neurologic: Yes (Dementia/Alzheimer's) Psychiatric: Yes Reproductive: No Respiratory: No Past Surgical History Abdominal Surgery: No Appendectomy: Yes Body Medical Devices: left and right hip hardware Cardiac Surgery: No Ear Surgery: No Endocrine Surgery: No Eye Surgery: No Genitourinary Surgery: No Gynecologic Surgery: No Oral Surgery: No Thoracic Surgery: No Other Surgery: Yes Social History Alcohol Use: No Tobacco Use: No Substance Use: No Allergies-Medications (Allergen,Severity, Reaction): Coded Allergies: No Known Allergies (Unverified Allergy, Unknown, 09/24/17) Reported Meds & Prescriptions Reported Meds & Active Scripts Active Diflucan (Fluconazole) 100 Mg Tab 150 Mg PO DAILY Xarelto (Rivaroxaban) 10 Mg Tab 10 Mg PO DAILY Percocet (Oxycodone-Acetaminophen) 5-325 mg Tab 1 Tab PO Q4H PRN Reported Keflex (Cephalexin) 500 Mg Cap 500 Mg PO Q6H Escitalopram (Escitalopram Oxalate) 5 Mg Tab 5 Mg PO DAILY Polyethylene Glycol 3350 Powder (Polyethylene Glycol) 17 Gram Pow 17 Gm PO DAILY Ferrous Sulfate 325 Mg (65 Mg Iron) Tablet 325 Mg PO DAILY Lisinopril 20 Mg Tab 20 Mg PO DAILY Lorazepam 0.5 Mg Tab 0.5 Mg PO Q6H PRN B-12 (Cyanocobalamin) 100 Mcg Tab 250 Mcg PO DAILY Eucerin Skin Calming Itch Topical (Menthol Topical) 0.1 % Lot 1 Applic TOPICAL DIRECTED PRN Namenda (Memantine) 10 Mg Tab 10 Mg PO DAILY Glimepiride 1 Mg Tab 1 Mg PO DAILY Take with breakfast or first main meal Dulcolax Stool Softener (Docusate Sodium) 100 Mg Cap 100 Mg PO BID PRN Review of Systems Except as stated in HPI: all other systems reviewed are Neg Physical Exam Narrative GENERAL: Well-nourished, elderly female patient, pleasantly confused but appears in no acute distress. Patient has Duran catheter in place with a cloudy yellow urine. Adult depends diaper is in place. SKIN: Focused skin assessment warm/dry. Well approximated laceration on the right lateral hip with erythema. Purulent drainage. Tender to palpate. HEAD: Atraumatic. Normocephalic. EYES: Pupils equal and round. No scleral icterus. No injection or drainage. ENT: No nasal bleeding or discharge. Mucous membranes pink and moist. NECK: Trachea midline. No JVD. CARDIOVASCULAR: Regular rate and rhythm. 2/6 systolic murmur appreciated. RESPIRATORY: No accessory muscle use. Clear to auscultation. Breath sounds equal bilaterally. GASTROINTESTINAL: Abdomen soft, non-tender, nondistended. Hepatic and splenic margins not palpable. MUSCULOSKELETAL: No obvious deformities. No clubbing. No cyanosis. No edema. NEUROLOGICAL: Awake and alert. No obvious cranial nerve deficits. Motor grossly within normal limits. Normal speech. Data Data Last Documented VS Vital Signs Date Time Temp Pulse Resp B/P (MAP) Pulse Ox O2 Delivery O2 Flow Rate FiO2 09/24/17 14:07 82 20 173/82 (112) 98 Room Air 09/24/17 11:41 98.4 Orders Orders Complete Blood Count With Diff (09/24/17 11:46) Prothrombin Time / Inr (Pt) (09/24/17 11:46) Act Partial Throm Time (Ptt) (09/24/17 11:46) Urinalysis - C+S If Indicated (09/24/17 11:46) Blood Culture (09/24/17 11:46) Blood Glucose (09/24/17 11:46) Ecg Monitoring (09/24/17 11:46) Iv Access Insert/Monitor (09/24/17 11:46) Oximetry (09/24/17 11:46) Oxygen Administration (09/24/17 11:46) Hip, Uni(Ap&Lat) W Ap Pelvis (09/24/17 ) Basic Metabolic Panel (Bmp) (09/24/17 11:46) Wound Culture And Gram Stain (09/24/17 11:46) Replace Duran (09/24/17 11:50) Cath For Specimen (09/24/17 13:17) Urine Culture (09/24/17 13:55) Ceftriaxone Inj (Rocephin Inj) (09/24/17 15:00) Ed Discharge Order (09/24/17 15:07) Labs Laboratory Tests Test 09/24/17 12:00 09/24/17 13:55 White Blood Count 8.2 TH/MM3 Red Blood Count 2.85 MIL/MM3 Hemoglobin 8.4 GM/DL Hematocrit 25.2 % Mean Corpuscular Volume 88.5 FL Mean Corpuscular Hemoglobin 29.6 PG Mean Corpuscular Hemoglobin Concent 33.5 % Red Cell Distribution Width 15.2 % Platelet Count 319 TH/MM3 Mean Platelet Volume 10.1 FL Neutrophils (%) (Auto) 86.6 % Lymphocytes (%) (Auto) 5.0 % Monocytes (%) (Auto) 7.4 % Eosinophils (%) (Auto) 0.4 % Basophils (%) (Auto) 0.6 % Neutrophils # (Auto) 7.1 TH/MM3 Lymphocytes # (Auto) 0.4 TH/MM3 Monocytes # (Auto) 0.6 TH/MM3 Eosinophils # (Auto) 0.0 TH/MM3 Basophils # (Auto) 0.0 TH/MM3 CBC Comment DIFF FINAL Differential Comment Prothrombin Time 13.4 SEC Prothromb Time International Ratio 1.3 RATIO Activated Partial Thromboplast Time 78.3 SEC Blood Urea Nitrogen 16 MG/DL Creatinine 0.92 MG/DL Random Glucose 106 MG/DL Calcium Level 8.3 MG/DL Sodium Level 131 MEQ/L Potassium Level 4.4 MEQ/L Chloride Level 97 MEQ/L Carbon Dioxide Level 24.2 MEQ/L Anion Gap 10 MEQ/L Estimat Glomerular Filtration Rate 58 ML/MIN Urine Color YELLOW Urine Turbidity HAZY Urine pH 6.0 Urine Specific Downing 1.027 Urine Protein 30 mg/dL Urine Glucose (UA) NEG mg/dL Urine Ketones NEG mg/dL Urine Occult Blood MOD Urine Nitrite NEG Urine Bilirubin NEG Urine Urobilinogen 8.0 MG/DL Urine Leukocyte Esterase LARGE Urine RBC 55 /hpf Urine WBC 39 /hpf Urine Squamous Epithelial Cells 10 /hpf Urine Transitional Epithelial Cells 1 /hpf Urine Bacteria OCC /hpf Urine Mucus MOD /lpf Microscopic Urinalysis Comment CATH-CULTURE IND MDM Medical Decision Making Medical Screen Exam Complete: Yes Emergency Medical Condition: Yes Medical Record Reviewed: Yes Differential Diagnosis Hypoglycemia secondary to sulfonylurea, versus electrolyte abnormality versus sepsis Narrative Course 87-year-old female presents emergency department from [facility] for evaluation of hypoglycemia. Patient had a blood glucose of 46 on lab work completed yesterday. This morning they tell me her blood glucose was 86. Patient appears without distress. She does have an indwelling Duran catheter with cloudy yellow urine. This will be changed and culture will be sent. Diagnosis Primary Impression: UTI (urinary tract infection) Qualified Codes: T83.511A - Infection and inflammatory reaction due to indwelling urethral catheter, initial encounter; N39.0 - Urinary tract infection , site not specified Additional Impression: Hypoglycemia Referrals: Primary Care Physician Patient Instructions: Catheter-associated Urinary Tract Infection (ED), General Instructions Additional Instructions: Follow-up with a primary care provider Return immediately with acute worsening of symptoms Med/Other Pt SpecificInfo: Prescription(s) given Scripts Nitrofurantoin Monohydrate Macrocrystals (Macrobid) 100 Mg Cap 100 MG PO BID for Infection for 10 Days, #20 CAP 0 Refills Prov: Marlyn Srivastava 09/24/17 Disposition: 01 DISCHARGE HOME Condition: Stable Marlyn Srivastava September 24, 2017 11:51
[2017-09-24 12:36] LABS: AUTOMATED NEUTROPHIL # 7.1 TH/MM3 (1.8-7.7); BASOPHIL % 0.6 % (0.0-2.0); EOSINOPHIL % 0.4 % (0.0-4.0); HEMATOCRIT 25.2 % (35.0-46.0); HEMOGLOBIN 8.4 GM/DL (11.6-15.3); LYMPHOCYTE # 0.4 TH/MM3 (1.0-4.8); MEAN CELL VOLUME 88.5 FL (80.0-100.0); MEAN CORPUSCULAR HEMOGLOBIN 29.6 PG (27.0-34.0); MEAN CORPUSCULAR HGB CONC 33.5 % (32.0-36.0); MEAN PLATELET VOLUME 10.1 FL (7.0-11.0); MONO % 7.4 % (0.0-8.0); MONOCYTE # 0.6 TH/MM3 (0-0.9); NEUT % 86.6 % (16.0-70.0); PLATELET COUNT 319 TH/MM3 (150-450); RED BLOOD COUNT 2.85 MIL/MM3 (4.00-5.30); RED CELL DISTRIBUTION WIDTH 15.2 % (11.6-17.2); WHITE BLOOD COUNT 8.2 TH/MM3 (4.0-11.0)
[2017-09-24 12:37] VITALS: O2SAT 98
[2017-09-24 12:41] LABS: INTERNATIONAL NORMALIZED RATIO 1.3 RATIO; PROTHROMBIN TIME - PATIENT 13.4 SEC (9.8-11.6)
[2017-09-24 13:23] LABS: CALCIUM 8.3 MG/DL (8.5-10.1); CREATININE 0.92 MG/DL (0.50-1.00)
[2017-09-24 13:24] LABS: BICARBONATE 24.2 MEQ/L (21.0-32.0)
--- NOTE | 2017-09-24 13:36 | RADRPT ---
EXAM DATE/TIME: 09/24/2017 12:45 [facility] COMPARISON: HIP RIGHT (AP&LAT 2/3VWS) W AP PELVIS, September 08, 2017, 13:39. INDICATIONS : Right hip pain. MEDICAL HISTORY : Dementia. Diabetes mellitus type 2. SURGICAL HISTORY : None. ENCOUNTER: Initial ACUITY: 1 day PAIN SCORE: 10/10 LOCATION: Right hip. FINDINGS: The patient is status post a total hip arthroplasty with a bipolar prosthesis. Prosthesis is well-sea jazmyne. Alignment is anatomic. A fracture is not appreciated. Previous nailing is present on the left. CONCLUSION: Anatomic alignment status post right hip arthroplasty.. Bert Ann MD FACR Board Certified Radiologist. This report was verified electronically.
[2017-09-24 14:07] VITALS: BP 173/82; PULSE 82; RESP 20; O2SAT 98
[2017-09-24] MEDS ORDERED: CEPH-460 PO (14:18)
[2017-09-24 14:36] LABS: BACTERIA, URINE OCC /hpf; BILIRUBIN, URINE NEG (NEG); BLOOD, URINE MOD (NEG); GLUCOSE,URINE NEG (NEG); KETONE, URINE NEG (NEG); MUCUS URINE MOD /lpf (OCC); NITRITE,URINE NEG (NEG); SQUAMOUS EPITHELIAL CELL URINE 10 /hpf (0-5); TRANSITIONAL EPI CELLS, URINE 1 /hpf; URINE COLOR YELLOW (YELLW/STRAW); URINE LEUKOCYTE ESTERASE LARGE (NEG)
[2017-09-24] MEDS ORDERED: cefTRIAXone INJ 1,000 MG in SODIUM CHLORIDE 0.9% INJ 100 ML IV ONE (15:00)
[2017-09-24] MEDS ORDERED: MACR100C2 PO (15:44)
== END 2017-09-24 17:46 | disposition home or self-care (01) ==
LOC: NEPC 11:28
DX: T83.511A Infection and inflammatory reaction due to indwelling urethral catheter, initial encounter (principal); N39.0 Urinary tract infection, site not specified; B95.62 Methicillin resistant Staphylococcus aureus infection as the cause of diseases classified elsewhere; F02.80 Dementia in other diseases classified elsewhere, unspecified severity, without behavioral disturbance, psychotic disturbance, mood disturbance, and anxiety; I25.10 Atherosclerotic heart disease of native coronary artery without angina pectoris; Z79.84 Long term (current) use of oral hypoglycemic drugs
CPT/HCPCS: 51702; 73502; 80048; 81001; 85025; 85610; 85730; 86403; 87040; 87070; 87086; 87147; 87186; 87205; 96365; 99284; J0696